=== PATIENT | female | born 1955 | race Caucasian/White ===

== ENCOUNTER → 2016-04-09 | Outpatient (CLI) | payer OTHER ==
[~2016-04-09] MED LIST: ACET-1256 PO; ANT25 PO; FURO-85 PO; LEVO100C2 PO
--- NOTE | 2016-04-09 17:23 | DIAGNOSTIC IMAGING REPORT ---
LEFT SHOULDER 3 VIEWS HISTORY: Left shoulder pain. COMPARISON: None. FINDINGS: There is no fracture or dislocation. Soft tissues are unremarkable. The left clavicle appears intact. There is mild AC joint arthrosis. IMPRESSION: No fracture or dislocation within the left shoulder. Electronically signed by: Ken Fields M.D. 04/09/2016 5:22 PM Dictated Date/Time: 04/09/2016 5:20 PM
== END | disposition home or self-care (01) ==
LOC: C.RAD 17:06
PROVIDERS: ATTEND Internal Medicine
DX: M25.512 Pain in left shoulder (principal)

== ENCOUNTER → 2016-07-13 | Outpatient (CLI) | payer OTHER ==
[~2016-07-13] MED LIST changes: +ERYT200S PO
--- NOTE | 2016-07-13 14:01 | DIAGNOSTIC IMAGING REPORT ---
CERVICAL SPINE 2 OR 3 VIEWS CLINICAL HISTORY: Neck and arm pain. COMPARISON STUDY: Cervical spine CT September 24, 2015. FINDINGS: C7 is slightly obscured on this exam. There is reversal of the normal cervical lordosis. This is unchanged. Mild to moderate disc space narrowing and osteophytosis is noted at C5-C6 and C6-C7. There is no acute fracture or suspicious lesion. IMPRESSION: 1. No cervical spine fracture or subluxation. 2. Reversal of normal cervical lordosis which is unchanged. 3. Mild to moderate multilevel degenerative disc disease, most pronounced at C5-C6 and C6-C7. Electronically signed by: Allan Fgiueroa M.D. 07/13/2016 2:00 PM Dictated Date/Time: 07/13/2016 1:58 PM
== END | disposition home or self-care (01) ==
LOC: C.RAD 13:26
PROVIDERS: ATTEND Physician Assistant Medical
DX: M54.2 Cervicalgia (principal); M79.603 Pain in arm, unspecified; M50.322 Other cervical disc degeneration at C5-C6 level; M50.323 Other cervical disc degeneration at C6-C7 level

== ENCOUNTER → 2016-08-06 | Outpatient (CLI) | payer OTHER ==
[2016-08-06 17:54] LABS: ALT/SGPT 27 U/L (12-78); AST/SGOT 18 U/L (15-37); BLOOD UREA NITROGEN 12 mg/dl (7-18); BUN/CREATININE RATIO 12.1 (10-20); CALCIUM 9.2 mg/dl (8.5-10.1); CARBON DIOXIDE 33 mmol/L (21-32); CHLORIDE 108 mmol/L (98-107); CHOLESTEROL 253 mg/dl (0-200); CHOLESTEROL/HDL RATIO 5.1; GLUCOSE 98 mg/dl (70-99); HDL CHOLESTEROL 50 mg/dl; POTASSIUM 4.6 mmol/L (3.5-5.1); SODIUM 145 mmol/L (136-145)
[2016-08-06 18:04] LABS: ALB/GLOB RATIO 1.1 (0.9-2); ALKALINE PHOSPHATASE 78 U/L (45-117); LDL CHOLESTEROL CALCULATED 158 mg/dl; TRIGLYCERIDES 225 mg/dl (0-150); VERY LOW DENSITY LIPOPROT CALC 45 mg/dl
[2016-08-07 05:48] LABS: ESTIMATED AVERAGE GLUCOSE 126 mg/dl; HA1C FLAG Normal (Normal)
== END | disposition home or self-care (01) ==
LOC: C.LABBFT 12:04
PROVIDERS: ATTEND Internal Medicine
DX: E78.00 Pure hypercholesterolemia, unspecified (principal); E89.0 Postprocedural hypothyroidism; R73.01 Impaired fasting glucose

== ENCOUNTER → 2016-12-15 | Outpatient (CLI) | payer OTHER ==
[~2016-12-15] MED LIST changes: -ERYT200S PO
[2016-12-15 17:55] LABS: MANUAL MICROSCOPIC REQUIRED? NO; REVIEW REQ? NO; URINE APPEARANCE CLEAR (CLEAR); URINE BILIRUBIN NEG (NEG); URINE COLOR YELLOW; URINE NITRITE NEG (NEG); UROBILINOGEN NEG (NEG)
== END | disposition home or self-care (01) ==
LOC: C.LABBFT 11:47
PROVIDERS: ATTEND Physician Assistant Medical
DX: R35.0 Frequency of micturition (principal)

== ENCOUNTER → 2016-12-16 | Outpatient (CLI) | payer OTHER ==
[2016-12-16 12:40] LABS: BLOOD UREA NITROGEN 15 mg/dl (7-18); CREATININE 0.99 mg/dl (0.60-1.20); GLUCOSE 107 mg/dl (70-99)
[2016-12-16 12:41] LABS: BUN/CREATININE RATIO 15.3 (10-20); CALCIUM 9.2 mg/dl (8.5-10.1); CARBON DIOXIDE 27 mmol/L (21-32); CHLORIDE 106 mmol/L (98-107); POTASSIUM 4.4 mmol/L (3.5-5.1); SODIUM 140 mmol/L (136-145)
== END | disposition home or self-care (01) ==
LOC: C.LAB 10:36
PROVIDERS: ATTEND Physician Assistant Medical
DX: H81.10 Benign paroxysmal vertigo, unspecified ear (principal)

== ENCOUNTER 2017-01-27 15:31 | Emergency (ER) | payer OTHER ==
[~2017-01-27] VITALS: Ht 165.1 cm; Wt 115.3 kg
[2017-01-27 15:34] VITALS: TEMP 36.8; Ht 165.1 cm; Wt 115.3 kg
[2017-01-27] MEDS ORDERED: SODIUM CHLORIDE 0.9% 1000ML 1,000 ML IV ONE (16:00)
[2017-01-27] MEDS ORDERED: ERYT200S PO (16:42)
[2017-01-27 16:48] LABS: URINE APPEARANCE CLEAR (CLEAR); URINE BILIRUBIN NEG (NEG); URINE COLOR YELLOW; URINE NITRITE NEG (NEG); URINE PH 5.5 (4.5-7.5); URINE SPECIFIC GRAVITY 1.013 (1.000-1.030); UROBILINOGEN NEG (NEG); ZZUR CULT IF INDIC CLEAN CATCH NO
[2017-01-27 16:51] LABS: BASO % 0.4 %; BASO ABS # 0.03 K/uL (0-0.2); COMPLETE YES; EOS % 1.2 %; HEMATOCRIT 44.9 % (37-47); IG% 0.4 %; LYMPH % 30.2 %; LYMPH ABS # 2.25 K/uL (1.2-3.4); MEAN CELL VOLUME 93.7 fL (80-100); MEAN CORPUSCULAR HEMOGLOBIN 32.2 pg (25-34); MEAN CORPUSCULAR HGB CONC 34.3 g/dl (32-36); MEAN PLATELET VOLUME 10.3 fL (7.4-10.4); NEUT % 61.8 %; PLATELET COUNT 217 K/uL (130-400); RED BLOOD COUNT 4.79 M/uL (4.2-5.4); WHITE BLOOD COUNT 7.45 K/uL (4.8-10.8)
[2017-01-27 17:01] LABS: MANUAL MICROSCOPIC REQUIRED? NO; REVIEW REQ? NO
[2017-01-27 17:16] LABS: BUN/CREATININE RATIO 13.9 (10-20); CALCIUM 9.3 mg/dl (8.5-10.1); CREATININE 0.94 mg/dl (0.60-1.20); MAGNESIUM 2.2 mg/dl (1.8-2.4); POTASSIUM 3.9 mmol/L (3.5-5.1)
[2017-01-27 17:27] LABS: THYROID STIMULATING HORMONE 0.848 uIu/ml (0.300-4.500)
[2017-01-27 17:36] VITALS: BP 170/115; PULSE 74; O2SAT 99
[2017-01-27 17:55] VITALS: O2SAT 99
--- NOTE | 2017-01-27 22:27 | EMERGENCY ROOM VISIT NOTE ---
History First contact with patient: 15:42 Chief Complaint: HYPERTENSION Stated Complaint: BP HIGH, REFERRED History of Present Illness The patient is a 61 year old female who presents to the Emergency Room with complaints of elevated blood pressure reading today. The patient states that she usually checks her blood pressure at home because of elevated readings in the doctor's office. She essentially describes a white coat syndrome, and indicates that her blood pressure at home is usually in the 120s over 80s. The patient states that around 3 AM she got up from sleep to use the bathroom, and felt her heartbeat in her left ear. She checked her blood pressure and it was evidently in the 180s over 90s. This elevated blood pressure reading continued throughout the day. Evidently the patient has had a stressful day as her brother was diagnosed with cancer recently, and she took him to a doctor's appointment today. She states that when she got home she rechecked her blood pressure and it was in the 190s over 110s. The patient elected to then come to the ER for further evaluation. She does not have headache, lightheadedness, dizziness, vision changes, hearing changes, neck pain, chest pain, chest tightness, or shortness of breath. No difficulty using the bathroom. She has not taken anything [id number] for her symptoms. Review of Systems More than 10 systems were reviewed and otherwise negative with the exception of history of present illness. Past Medical/Surgical History Medical Problems: (1) Benign hypertension (2) Bronchitis (3) Dehydration (4) Diarrhea (5) Diarrhea (6) Folliculitis (7) Hypertension Nos (8) Kidney disease (9) Panic attack (10) Pneumonia (11) Pure Hypercholesterolem (12) Skin Problems (13) Urinary Problems (14) Weakness Surgical Problems: (1) Hysterectomy (2) Kidney and Ureter Removed (3) Thyroid Removed Family History Atrial Fibrillation Diabetes mellitus Hypertension Hypothyroidism Social History Smoking Status: Former Smoker Alcohol Use: none Drug Use: none Housing Status: lives with family Occupation Status: employed Current/Historical Medications Scheduled Erythromycin Ethylsuccinate (Eryped 200), 200 MG PO QID Levothyroxine Sodium (Tirosint), 100 MCG PO DAILY Scheduled PRN Acetaminophen (Tylenol), 1,000 MG PO for Headache Furosemide (Lasix), 20 MG PO DAILY PRN for SWELLING Physical Exam Vital Signs Date Time Temp Pulse Resp B/P (MAP) Pulse Ox O2 Delivery O2 Flow Rate FiO2 01/27/17 17:55 99 Room Air 01/27/17 17:36 74 18 170/115 99 Room Air 01/27/17 16:24 71 01/27/17 15:34 36.8 93 22 160/110 99 Room Air Physical Exam VITALS: Vitals are noted on the nurse's note and reviewed by myself. Vital signs with elevated blood pressure GENERAL: Well-developed, well-nourished, white female, who is in no acute distress and resting comfortably. Patient is cooperative with the examination. NECK: Supple without nuchal rigidity. No lymphadenopathy. No thyromegaly. Cervical spine is nontender. HEART: Regular rate and rhythm without murmurs gallops or rubs. LUNGS: Clear to auscultation bilaterally without wheezes, rales or rhonchi. No retractions or accessory muscle use. ABDOMEN: Positive normal bowel sounds x 4. Soft, nontender, without masses or organomegaly. No guarding or rebound tenderness. MUSCULOSKELETAL: No muscle atrophy, erythema, or edema noted. Full range of motion without joint tenderness in all extremities. NEURO: Patient was alert and oriented to person place and time. CN II through XII grossly intact. Medical Decision & Procedures Laboratory Results 01/27/17 16:40 Red Blood Count 4.79, Mean Corpuscular Volume 93.7, Mean Corpuscular Hemoglobin 32.2, Mean Corpuscular Hemoglobin Concent 34.3, Mean Platelet Volume 10.3, Neutrophils (%) (Auto) 61.8, Lymphocytes (%) (Auto) 30.2, Monocytes (%) (Auto) 6.0, Eosinophils (%) (Auto) 1.2, Basophils (%) (Auto) 0.4, Neutrophils # (Auto) 4.60, Lymphocytes # (Auto) 2.25, Monocytes # (Auto) 0.45, Eosinophils # (Auto) 0.09, Basophils # (Auto) 0.03 01/27/17 16:40 Test 01/27/17 16:20 01/27/17 16:40 Urine Color YELLOW Urine Appearance CLEAR (CLEAR) Urine pH 5.5 (4.5-7.5) Urine Specific [place] 1.013 (1.000-1.030) Urine Protein NEG (NEG) Urine Glucose (UA) NEG (NEG) Urine Ketones NEG (NEG) Urine Occult Blood NEG (NEG) Urine Nitrite NEG (NEG) Urine Bilirubin NEG (NEG) Urine Urobilinogen NEG (NEG) Urine Leukocyte Esterase NEG (NEG) White Blood Count 7.45 K/uL (4.8-10.8) Red Blood Count 4.79 M/uL (4.2-5.4) Hemoglobin 15.4 g/dL (12.0-16.0) Hematocrit 44.9 % (37-47) Mean Corpuscular Volume 93.7 fL (80-100) Mean Corpuscular Hemoglobin 32.2 pg (25-34) Mean Corpuscular Hemoglobin Concent 34.3 g/dl (32-36) Platelet Count 217 K/uL (130-400) Mean Platelet Volume 10.3 fL (7.4-10.4) Neutrophils (%) (Auto) 61.8 % Lymphocytes (%) (Auto) 30.2 % Monocytes (%) (Auto) 6.0 % Eosinophils (%) (Auto) 1.2 % Basophils (%) (Auto) 0.4 % Neutrophils # (Auto) 4.60 K/uL (1.4-6.5) Lymphocytes # (Auto) 2.25 K/uL (1.2-3.4) Monocytes # (Auto) 0.45 K/uL (0.11-0.59) Eosinophils # (Auto) 0.09 K/uL (0-0.5) Basophils # (Auto) 0.03 K/uL (0-0.2) RDW Standard Deviation 43.2 fL (36.4-46.3) RDW Coefficient of Variation 12.6 % (11.5-14.5) Immature Granulocyte % (Auto) 0.4 % Immature Granulocyte # (Auto) 0.03 K/uL (0.00-0.02) Anion Gap 7.0 mmol/L (3-11) Est Creatinine Clear Calc Drug Dose 78.7 ml/min Estimated GFR () 75.4 Estimated GFR (Non- 65.0 BUN/Creatinine Ratio 13.9 (10-20) Calcium Level 9.3 mg/dl (8.5-10.1) Magnesium Level 2.2 mg/dl (1.8-2.4) Total Bilirubin 0.7 mg/dl (0.2-1) Aspartate Amino Transf (AST/SGOT) 21 U/L (15-37) Alanine Aminotransferase (ALT/SGPT) 31 U/L (12-78) Alkaline Phosphatase 86 U/L (45-117) Troponin I < 0.015 ng/ml (0-0.045) Total Protein 8.0 gm/dl (6.4-8.2) Albumin 4.1 gm/dl (3.4-5.0) Globulin 3.9 gm/dl (2.5-4.0) Albumin/Globulin Ratio 1.0 (0.9-2) Thyroid Stimulating Hormone (TSH) 0.848 uIu/ml (0.300-4.500) Medications Administered Medications (Trade) Dose Ordered Sig/Nery Route Start Time Stop Time Status Last Admin Dose Admin Sodium Chloride 1,000 ml @ 999 mls/hr Q1H1M ONCE IV 01/27/17 16:00 01/27/17 17:00 DC 01/27/17 17:05 999 MLS/HR ECG Change: Normal sinus rhythm @77bpm Low voltage QRS Borderline ECG When compared with ECG of 21-JAN-2016 03:38, No significant change was found ED Course Physical exam and history were performed. Nursing notes, EMR, and Medication List were personally reviewed. Patient appears to have reports of elevated blood pressure. Her pressure is elevated today, but she is not describing any and organ injury. IV access was established and labs were obtained. The patient was hydrated with normal saline. EKG was performed and is as above without distinct ischemic findings. The patient's blood work is as above and was reviewed. She does not have a significantly elevated white blood cell count, gross anemia, bandemia, or significant electrolyte imbalance. Troponin 1 is negative. Her remaining labs are essentially nondiagnostic. Review of the patient's EMR over the past 5 years shows chronic hypertension. I remain skeptical that the patient has a true whitecoat syndrome, as her blood pressure is always elevated here in the emergency department, and today's readings are on the lower end of normal for her. I discussed options of care with the patient, and she indicated that she would rather follow with her primary care physician then start medication here. I do suspect that she will need some sort of treatment, although she is somewhat resistant to this. Overall the patient appears well for discharge home. She was given instructions as below and was otherwise invited back to the ER with any new, worsening, or concerning symptoms. The chart was completed utilizing [employer] Speech Voice Recognition Software. Grammatical errors, random word insertions, pronoun errors, and incomplete sentences are an occasional consequence of this system due to software limitations, ambient noise, and hardware issues. Any formal questions or concerns about the content, text, or information contained within the body of this dictation should be directly addressed to the provider for clarification. . Medical Decision Differential diagnosis includes, but is not limited to: Myocardial infarction, dysrhythmia, pericarditis, pneumothorax, aortic aneurysm/dissection, DVT/PE, anxiety, GERD, PUD, electrolyte imbalance, thyroid disorder, pneumonia, bronchitis, pancreatitis, and others Blood Pressure Screening Patient's blood pressure: Elevated blood pressure Blood pressure disposition: Referred to PCP Impression Primary Impression: Hypertension Departure Information Dispostion Home / Self-Care Condition GOOD Forms HOME CARE DOCUMENTATION FORM, IMPORTANT VISIT INFORMATION Patient Instructions My [facility] Additional Instructions You were seen and evaluated today on an emergency basis only. This is not a substitute for, or an effort to provide, complete comprehensive medical care. It is not possible to recognize and treat all injuries or illnesses in a single emergency department visit. For this reason it is recommended that you followup with your primary care physician next week for ongoing care and evaluation. You are welcome to return to the emergency department anytime with new, worsening, or concerning symptoms.
== END 2017-01-27 18:15 | disposition home or self-care (01) ==
LOC: C.EDB 15:32 → C.EDA 18:15
DX: I10 Essential (primary) hypertension (principal); N28.9 Disorder of kidney and ureter, unspecified; E78.00 Pure hypercholesterolemia, unspecified; Z87.01 Personal history of pneumonia (recurrent); Z90.710 Acquired absence of both cervix and uterus; Z90.5 Acquired absence of kidney; E89.0 Postprocedural hypothyroidism; Z83.3 Family history of diabetes mellitus; Z82.49 Family history of ischemic heart disease and other diseases of the circulatory system; Z83.49 Family history of other endocrine, nutritional and metabolic diseases; Z87.891 Personal history of nicotine dependence; Z79.899 Other long term (current) drug therapy

== ENCOUNTER → 2017-02-09 | Outpatient (CLI) | payer OTHER ==
[~2017-02-09] MED LIST changes: -ANT25 PO; +ERYT200S PO
[2017-02-09 12:32] LABS: ESTIMATED AVERAGE GLUCOSE 123 mg/dl; HA1C FLAG Normal (Normal)
[2017-02-09 12:35] LABS: ALT/SGPT 30 U/L (12-78); AST/SGOT 16 U/L (15-37); BLOOD UREA NITROGEN 18 mg/dl (7-18); BUN/CREATININE RATIO 17.5 (10-20); CALCIUM 8.9 mg/dl (8.5-10.1); CARBON DIOXIDE 28 mmol/L (21-32); CHLORIDE 106 mmol/L (98-107); CREATININE 1.05 mg/dl (0.60-1.20); GLUCOSE 173 mg/dl (70-99); POTASSIUM 3.7 mmol/L (3.5-5.1); SODIUM 138 mmol/L (136-145)
[2017-02-09 12:39] LABS: HEMATOCRIT 41.8 % (37-47); MEAN CELL VOLUME 95.7 fL (80-100); MEAN CORPUSCULAR HGB CONC 33.5 g/dl (32-36); MEAN PLATELET VOLUME 10.7 fL (7.4-10.4); PLATELET COUNT 224 K/uL (130-400); RED BLOOD COUNT 4.37 M/uL (4.2-5.4); WHITE BLOOD COUNT 7.49 K/uL (4.8-10.8)
[2017-02-09 12:41] LABS: ALB/GLOB RATIO 0.9 (0.9-2); ALKALINE PHOSPHATASE 75 U/L (45-117); CHOLESTEROL 242 mg/dl (0-200); CHOLESTEROL/HDL RATIO 4.7; HDL CHOLESTEROL 51 mg/dl; LDL CHOLESTEROL CALCULATED 143 mg/dl; TRIGLYCERIDES 242 mg/dl (0-150); VERY LOW DENSITY LIPOPROT CALC 48 mg/dl
== END | disposition home or self-care (01) ==
LOC: C.LABBFT 10:29
PROVIDERS: ATTEND Internal Medicine
DX: R73.01 Impaired fasting glucose (principal); E89.0 Postprocedural hypothyroidism; I10 Essential (primary) hypertension

== ENCOUNTER 2019-07-20 19:25 | Observation (INO) ==
[2019-07-20] MEDS ORDERED: SODIUM CHLORIDE 0.9% 1000ML 1,000 ML IV ONE (19:58)
[2019-07-20] MEDS ORDERED: ACETAMINOPHEN 500 MG TAB PO STA (19:58)
--- NOTE | 2019-07-20 20:04 | Emergency Department Note ---
Impression & Plan Abdominal pain, RUQ ED Provider Note Provider: Geo Izaguirre MD DATE OF SERVICE: 07/20/2019 CHIEF COMPLAINT: Right upper quadrant epigastric pain HISTORY OF PRESENT ILLNESS: Patient is a 64-year-old female with a past medical history of thyroid dysfunction, BPV, fibromyalgia, hyperlipidemia, hypertension presenting today with the onset approximately 2 hours ago of prickly right upper quadrant pain with some radiation of the back and little bit of epigastric discomfort. Denies nausea or vomiting. States a couple loose stools and some gaseous feeling and bloating. Did eat some ice cream and chips and salsa before this developed. Denies other sick contacts. No fever. No shortness of breath. States little bit of epigastric chest discomfort but denies true heartburn. States little bit of focal tenderness the right upper quadrant pain is fairly severe. Constant nature and again worse with palpation of the right upper quadrant. No trauma. No history of similar. No history of prior cholecystectomy. No lower abdominal pain. Denies ina diarrhea. REVIEW OF SYSTEMS: A total of 10 review of systems was obtained and negative except as stated above in the HPI. PAST MEDICAL HISTORY: As noted above MEDICATIONS: Reviewed and includes Synthroid SOCIAL HISTORY: Patient is a former smoker, lives at home alone PHYSICAL EXAM: GENERAL: alert and oriented in no acute distress on stretcher Head: normocephalic and atraumatic EYES: No injection, discharge or icterus. NECK: Trachea midline. Supple. ENT: Mucous membranes pink and moist. LUNGS: Airway patent. No retractions. Breath sounds clear HEART: Regular rate and rhythm. No chest wall tenderness ABDOMEN: Soft some focal right upper quadrant pain. BACK: No bilateral flank tenderness. SKIN: Acyanotic, warm, dry, without rashes EXTREMITIES: Without swelling, tenderness or deformity NEUROLOGICAL: No focal deficits. No aphasia. No facial droop or slurred speech. Ambulatory. EK bpm normal sinus rhythm. No PVCs. No acute ST segment elevation or depression is noted. Normal QTC and axis. No significant change compared to April 30 of this year. CONTINUOUS CARDIAC MONITORING: was ordered and showed a heart rate of 70 bpm in normal sinus rhythm Patient's hypertension was referred to the hospitalist PDMP was checked without noted issue. HOSPITAL COURSE: 1942 Patient was first seen and H&P performed. 2139 Patient reassessed and updated. Patient was still experiencing right upper quadrant pain and tenderness although lessened 2340 patient reassessed and updated on CT findings. Right upper quadrant pain has returned and is more severe compared to last assessment. Discussed with her options. Hospitalist to be contacted. Patient's laboratory studies and imaging reviewed. Differential includes Appendicitis, TOA, PID, infections, diverticulitis, UTI, obstruction, mesenteric ischemia, aortic pathology, inflammatory bowel disease, renal colic, PUD, pancreatitis, biliary pathology, hernia, volvulus, constipation, as well as other pathologies. IMPRESSION/MEDICAL DECISION MAKING: Patient with some right upper quadrant tenderness. Concern for possible gallbladder pathology. LFTs and lipase were sent off exclude hepatitis or pancreatitis. Troponin but EKG completed but low suspicion for acute ACS. Seem consistent with nephrolithiasis. No lower abdominal tenderness. Doubt acute appendicitis or gynecological pathology. Patient declined initial narcotic pain medication. Patient was offered Tylenol which she accepted but later advised she does not take pills. Patient with 8 or 9 out of 10 pain on reassessment return from ultrasound. Likely no significant leukocytosis and again no fever reported. Patient still with some focal tenderness right upper quadrant. Ultr asound showed cholelithiasis and mild gallbladder distention. Gallstone noted in the neck. No evidence of thickening or pericholecystic fluid. No definite Vega sign reported for ultrasound but cannot exclude acute cholecystitis. No biliary ductal dilation likely. Given the pain she still significantly countering at this time discussed with her general surgeon on-call. Patient given some IV Tylenol here. Did have several small bowel movements. Patient's right upper quadrant pain improved significantly with Tylenol. Little bit of flank pain/back pain continues. CT scan was completed in discussion with her to exclude other acute pathology. Noncontrast given her allergy complex. Consider admission for HIDA scan given ultrasound findings. Did discuss with her options at this point. On reassessment after the CT scan the patient's states her pain returned and still has tenderness in the right upper quadrant. Again not septic and rates 4 out of 10 pain. Pain is returned after the Tylenol. Discussed with her given a very small dose of some fentanyl for more pain control. Discussed options of observation or further surgical evaluation in the morning versus outpatient follow-up for cholelithiasis. Patient's hypertension likely secondary to pain and she states she has poorly controlled hypertension at baseline. Will discuss with hospitalist. DIAGNOSIS: Right upper quadrant pain, cholelithiasis DISPOSITION: Being evaluated by the hospitalist Past Med/Surg History Social History (Updated 06/16/19 @ 16:34 by Reena Solorzano LPN) Preferred Language: Burmese marital status: Feels Safe at Home: Yes Smoking Status: Former smoker Hx Alcohol Use: No Hx Substance Use: No Allergies Allergies Allergy/AdvReac Type Severity Reaction Status Date / Time ibuprofen Allergy Severe ELEVATED BP Verified 07/20/19 21:28 procaine Allergy Severe DIFFICULTY Verified 07/20/19 21:28 BREATHING Bactrim Allergy Intermediate HIVES; SOB Unverified 10/02/17 03:14 nitrofurantoin Allergy Intermediate HIVES Verified 07/20/19 21:28 sulfamethoxazole Allergy Intermediate HIVES; SOB Verified 07/20/19 21:28 trimethoprim Allergy Intermediate HIVES; SOB Verified 07/20/19 21:28 bupropion Allergy Unknown SEVERE Verified 07/20/19 21:28 HEADACHE, WEAKNESS cefaclor Allergy Unknown HIVES Verified 07/20/19 21:28 cephalexin Allergy Unknown HIVES Verified 07/20/19 21:28 chlorpheniramine Allergy Unknown SOB,PANIC Verified 07/20/19 21:28 ATTACK chocolate flavor Allergy Unknown HIVES Verified 07/20/19 21:30 Cipro Allergy Unknown HIVES Unverified 10/02/17 03:14 ciprofloxacin Allergy Unknown HIVES Verified 07/20/19 21:30 codeine Allergy Unknown SOB,PANIC Verified 07/20/19 21:30 ATTACK diphenhydramine Allergy Unknown HIVES Verified 07/20/19 21:30 epinephrine Allergy Unknown UNCONTROLLED Verified 07/20/19 21:30 SHAKING, ELEVATED BP fluoxetine Allergy Unknown SEVERE Verified 07/20/19 21:30 HEADACHE Iodinated Contrast Media Allergy Unknown SHORTNESS Verified 07/20/19 21:30 OF BREATH latex Allergy Unknown ITCHY RASH Verified 07/20/19 21:30 lidocaine Allergy Unknown UNCONTROLLED Verified 07/20/19 21:30 SHAKING, ELEVATED BP minocycline Allergy Unknown HIVES Verified 07/20/19 21:30 morphine Allergy Unknown SEVERE Verified 07/20/19 21:30 HEADACHE paroxetine Allergy Unknown SEVERE Verified 07/20/19 21:30 HEADACHE Penicillins Allergy Unknown HIVES Verified 07/20/19 21:30 phenylpropanolamine Allergy Unknown SOB,PANIC Verified 07/20/19 21:30 ATTACK strawberry Allergy Unknown HIVES Verified 07/20/19 21:30 azithromycin Allergy Unknown Verified 07/20/19 21:30 clindamycin AdvReac Intermediate DIARRHEA Verified 07/20/19 21:30 tetracycline AdvReac Intermediate YEAST Verified 07/20/19 21:30 INFECTION caffeine AdvReac Unknown INCREASE BP Verified 07/20/19 21:30 CONTRAST DYE Allergy Intermediate SOB, HOT Uncoded 07/20/19 21:30 Home Meds Previous Rx's Medication Instructions Recorded levothyroxine 100 mcg capsule 100 mcg PO DAILY #30 cap 03/03/19 furosemide 20 mg tablet 10 mg PO DAILY PRN #30 tab 04/10/19 Results & Data (ED) Vital Signs Vital Signs - 24 hr 07/20/19 19:27 07/20/19 20:08 07/20/19 22:11 Temperature 36.8 C Temperature Source Oral Pulse Rate 97 H Pulse Rate [Apical] 70 Pulse Rate from SpO2 Sensor Pulse Rhythm Regular Pulse Strength Normal Respiratory Rate 20 20 Respiratory Effort / Characteristics Non-Labored Respiratory Depth Normal Respiratory Pattern Blood Pressure 185/115 H Blood Pressure [Left Arm] 229/90 H Blood Pressure Mean 138 Blood Pressure Mean [Left Arm] 136 Blood Pressure Position Sitting Pulse Oximetry 95 98 98 Oxygen Delivery Method Room Air Room Air Room Air Sepsis Recent Fever Within 48 Hours No Sepsis Action Taken by Nursing No Action Required 07/21/19 00:05 07/21/19 00:30 07/21/19 01:00 Temperature Temperature Source Pulse Rate 74 80 Pulse Rate [Apical] 75 Pulse Rate from SpO2 Sensor 73 80 Pulse Rhythm Pulse Strength Respiratory Rate 20 14 18 Respiratory Effort / Characteristics Non-Labored Spontaneous Respiratory Depth Normal Respiratory Pattern Regular Blood Pressure Blood Pressure [Left Arm] 211/91 H Blood Pressure Mean Blood Pressure Mean [Left Arm] 131 Blood Pressure Position Pulse Oximetry 97 96 98 Oxygen Delivery Method Room Air Room Air Room Air Sepsis Recent Fever Within 48 Hours Sepsis Action Taken by Nursing 07/21/19 01:30 Temperature Temperature Source Pulse Rate 83 Pulse Rate [Apical] Pulse Rate from SpO2 Sensor 80 Pulse Rhythm Pulse Strength Respiratory Rate 16 Respiratory Effort / Characteristics Respiratory Depth Respiratory Pattern Blood Pressure Blood Pressure [Left Arm] Blood Pressure Mean Blood Pressure Mean [Left Arm] Blood Pressure Position Pulse Oximetry 95 Oxygen Delivery Method Room Air Sepsis Recent Fever Within 48 Hours Sepsis Action Taken by Nursing Laboratory Data Result diagrams: 07/20/19 19:43 07/20/19 19:43 Lab Results 07/20/19 07/20/19 07/20/19 Range/Units 19:43 19:43 19:43 WBC 8.72 (4.8-10.8) K/uL RBC 4.93 (4.2-5.4) M/uL Hgb 15.9 (12.0-16.0) g/dL Hct 46.9 (37-47) % MCV 95.1 (80-100) fL MCH 32.3 (25-34) pg MCHC 33.9 (32-36) g/dL RDW Std Deviation 44.7 (36.4-46.3) fL RDW Coeff of Govind 12.9 (11.5-14.5) % Plt Count 228 (130-400) K/uL MPV 10.7 H (7.4-10.4) fL Immature Gran % (Auto) 0.5 % Neut % (Auto) 50.4 % Lymph % (Auto) 42.2 % [place] % (Auto) 5.4 % Eos % (Auto) 0.9 % Baso % (Auto) 0.6 % Immature Gran # (Auto) 0.04 H (0.00-0.02) K/uL Neut # (Auto) 4.40 (1.4-6.5) K/uL Lymph # (Auto) 3.68 H (1.2-3.4) K/uL [place] # (Auto) 0.47 (0.11-0.59) K/uL Eos # (Auto) 0.08 (0-0.5) K/uL Baso # (Auto) 0.05 (0-0.2) K/uL Sodium 139 (136-145) mmol/L Potassium 3.9 (3.5-5.1) mmol/L Chloride 105 (98-107) mmol/L Carbon Dioxide 29 (21-32) mmol/L Anion Gap 5.0 (3-11) BUN 15 (7-18) mg/dl Creatinine 1.15 (0.6-1.2) mg/dl Est Cr Clr Drug Dosing 62.1 ml/min Est GFR ( Amer) 57.8 Est GFR (Non-Af Amer) 49.9 BUN/Creatinine Ratio 13.5 (10-20) Glucose 166 H (70-99) mg/dl Calcium 9.7 (8.5-10.1) mg/dl Total Bilirubin 0.4 (0.2-1) mg/dl AST 34 (15-37) U/L ALT 61 (12-78) U/L Alkaline Phosphatase 92 (45-117) U/L Troponin I < 0.015 (0-0.045) ng/ml Total Protein 8.4 H (6.4-8.2) gm/dl Albumin 4.0 (3.4-5.0) gm/dl Globulin 4.4 H (2.5-4.0) gm/dl Albumin/Globulin Ratio 0.9 (0.9-2) Lipase 143 (73-393) U/L Urine Color Yellow Urine Appearance Turbid A (Clear) Urine pH 7.5 (4.5-7.5) Ur Specific [place] 1.016 (1.000-1.030) Urine Protein Negative (Negative) Urine Glucose (UA) Negative (Negative) Urine Ketones Negative (Negative) Urine Blood Negative (Negative) Urine Nitrite Negative (Negative) Urine Bilirubin Negative (Negative) Urine Urobilinogen Negative (Negative) Ur Leukocyte Esterase Negative (Negative) Urine WBC (Auto) 0 (0-5) /hpf Urine RBC (Auto) 0-4 (0-4) /hpf U Hyaline Cast (Auto) 0 (0-5) /lpf U Epithel Cells (Auto) 5-10 H (0-5) /lpf Urine Bacteria (Auto) Negative (Negative) Administered Medications Discontinued Medications Acetaminophen (Tylenol) 1,000 mg PO NOW STA Stop: 07/20/19 19:59 Last Admin: 07/20/19 20:27 Dose: Not Given Documented by: [id number] Fentanyl Citrate (Fentanyl Citrate) 25 mcg IV NOW STA Stop: 07/20/19 23:45 Last Admin: 07/20/19 23:53 Dose: 25 mcg Documented by: [id number] Sodium Chloride (Nss 1000ml) 1,000 mls @ 999 mls/hr IV .Q1H1M ONE Stop: 07/20/19 20:58 Last Infusion: 07/20/19 21:09 Dose: 0 mls/hr Documented by: [id number] Admin: 07/20/19 20:07 Dose: 999 mls/hr Documented by: [id number] Acetaminophen (Ofirmev) 1,000 mg in 100 mls @ 400 mls/hr IV NOW STA Stop: 07/20/19 22:17 Last Infusion: 07/20/19 22:29 Dose: 0 mls/hr Documented by: [id number] Admin: 07/20/19 22:09 Dose: 400 mls/hr Documented by: [id number] Discharge Plan Visit Data Chief Complaint: Abdominal Pain Stated Complaint: POSSIBLE GULLBLADDER PROBLEMS ED Provider: Geo Izaguirre Discharge Problem: Abdominal pain, RUQ Forms Stand Alone Forms: [facility] Prescriptions Prescriptions: No Action Tirosint 100 mcg capsule 100 mcg PO DAILY Qty: 30 RF: 5 furosemide 20 mg tablet 10 mg PO DAILY PRN (Reason: edema) Qty: 30 RF: 5
[2019-07-20 20:09] LABS: Basophils # (auto) 0.05 K/uL (0-0.2); Basophils % (auto) 0.6 %; Eosinophils # (auto) 0.08 K/uL (0-0.5); Eosinophils % (auto) 0.9 %; Hematocrit (blood only) 46.9 % (37-47); Hemoglobin 15.9 g/dL (12.0-16.0); Immature Granulocytes # (auto) 0.04 K/uL (0.00-0.02); Immature Granulocytes % (auto) 0.5 %; Lymphocytes # (auto) 3.68 K/uL (1.2-3.4); Lymphocytes % (auto) 42.2 %; Mean Corpuscular Hemoglobin 32.3 pg (25-34); Mean Corpuscular Hgb Conc 33.9 g/dL (32-36); Mean Corpuscular Volume 95.1 fL (80-100); Mean Platelet Volume 10.7 fL (7.4-10.4); Monocytes # (auto) 0.47 K/uL (0.11-0.59); Monocytes % (auto) 5.4 %; Neutrophils % (auto) 50.4 %; Platelet Count 228 K/uL (130-400); RDW Coefficient of Variation 12.9 % (11.5-14.5); RDW Standard Deviation 44.7 fL (36.4-46.3); Red Blood Count 4.93 M/uL (4.2-5.4); White Blood Count 8.72 K/uL (4.8-10.8)
[2019-07-20 20:13] LABS: Appearance Urine Turbid (Clear); Bacteria Urine Automated Negative (Negative); Bilirubin Urine Negative (Negative); Blood Urine Negative (Negative); Cast Urine Automated 0 /lpf (0-5); Color Urine Yellow; Glucose Urine UA Negative (Negative); Ketones Urine Negative (Negative); Leukocyte Esterase Urine Negative (Negative); Nitrite Urine Negative (Negative); Protein Urine Negative (Negative); RBC Urine Automated 0-4 /hpf (0-4); Specific Gravity Urine 1.016 (1.000-1.030); Urobilinogen Urine Negative (Negative); WBC Urine Automated 0 /hpf (0-5); pH Urine 7.5 (4.5-7.5)
[2019-07-20 20:38] LABS: Alanine Aminotransferase 61 U/L (12-78); Albumin Globulin Ratio 0.9 (0.9-2); Alkaline Phosphatase 92 U/L (45-117); BUN Creatinine Ratio 13.5 (10-20); Bilirubin,Total 0.4 mg/dl (0.2-1); Blood Urea Nitrogen 15 mg/dl (7-18); Calcium 9.7 mg/dl (8.5-10.1); Carbon Dioxide 29 mmol/L (21-32); Chloride 105 mmol/L (98-107); Creatinine Clr Calc Pharmacy 62.1 ml/min; Est GFR (African American) 57.8; Est GFR (Non-African American) 49.9; Globulin 4.4 gm/dl (2.5-4.0); Glucose 166 mg/dl (70-99); Lipase 143 U/L (73-393); Total Protein 8.4 gm/dl (6.4-8.2); Troponin I < 0.015 ng/ml (0-0.045)
[2019-07-20 21:10] LABS: Aspartate Aminotransferase 34 U/L (15-37); Potassium 3.9 mmol/L (3.5-5.1); Sodium 139 mmol/L (136-145)
--- NOTE | 2019-07-20 21:16 | Ultrasound Report ---
US gallbladder CLINICAL HISTORY: Right upper quadrant abdominal pain. COMPARISON STUDY: CT of the abdomen and pelvis December 04, 2011. FINDINGS: Hepatic echogenicity is increased consistent with fatty infiltration with sparing within th e gallbladder fossa. A few hepatic cysts are noted. There is no biliary ductal dilatation. The common bile duct measures 5 mm in caliber. The pancreatic body is normal. The head and tail are obscured. T here are gallstones and sludge within the gallbladder. There is a gallstone within the gallbladder ne ck. Gallbladder is mildly distended. There is no gallbladder wall thickening. No pericholecystic flui d is present. There is no definite sonographic Vega sign. No right hydronephrosis is present. There is slight prominence of the right renal collecting system. A 1.2 cm right renal cyst is present. IMPRESSION: 1. Cholelithiasis and mild gallbladder distention. No gallbladder wall thickening or pericholecystic fluid. No definite sonographic Vega sign. Although not highly suggestive, acute cholecystitis canno t be excluded and a hepatobiliary scan could be obtained. 2. Fatty infiltration of the liver. 3. No biliary ductal dilatation. ACT 112: Negative or not required by law. Electronically signed by: Allan Figueroa M.D. 07/20/2019 9:14 PM
[2019-07-20] MEDS ORDERED: ACETAMINOPHEN 1,000 MG/100 ML VIAL IV STA (22:03)
[2019-07-20] MEDS ORDERED: fentaNYL citrate 100 MCG/2 ML VIAL IV STA (23:44)
--- NOTE | 2019-07-21 01:20 | History & Physical Report ---
Date of Service July 21, 2019 Assessment & Plan (1) Abdominal pain, RUQ: 64-year-old female with a past medical history of hypothyroidism status post thyroidectomy, hypertension, anxiety and depression, BPPV, hypercholesterolemia admitted for right upper quadrant pain and cholelithiasis. 1. Cholelithiasis Gallbladder ultrasound and CT abdomen without contrast showing no gallbladder wall thickening, no pericystic fluid or stranding, no biliary ductal dilatation but with presence of a few gallbladder stones. CT did show some evidence of gallbladder sludge. Admitted to [facility] with plans for HIDA scan in the morning White blood cell count within normal range and AST/ALT, alk phos all within normal range. Unimpressive for acute cholecystitis General surgery consulted, appreciate recommendations regarding surgical options IV Zofran for nausea IV Tylenol and Toradol for pain control. Patient stated that the fentanyl given in ED did not "touch her pain." N.p.o. at midnight IV normal saline at maintenance rate 2 hypothyroidism Continued home levothyroxine 100 mcg daily 3. Hypertension Continued home furosemide 10 mg daily DVT prophylaxis: Heparin 5000 units subcu twice daily FEN/GI: N.p.o. with maintenance IV normal saline CODE STATUS: Full code Disposal: [facility] (2) Hypothyroidism, postablative: (3) Depression: (4) Hypertension: History of Present Illness 64-year-old female with a past medical history of hypercholesterolemia, hypothyroidism status post ablation and removal, fibromyalgia, depression, hypertension presents to the emergency department with right upper quadrant abdominal pain that started earlier today. She states that she ate mostly junk food today and started feeling some aching right upper quadrant abdominal pain that only got worse as time went on. She denies any radiation of the pain, worsening or relieving factors. She did not take anything at home to relieve the pain. She did feel some nausea but had no episodes of emesis. She states she has had some loose stools which she believes to be secondary to the melon that she ate however she denies any blood in the stool, black tarry stools, ina diarrhea. ED course: Gallbladder ultrasound showing Cholelithiasis and mild gallbladder distention without gallbladder wall thickening or pericholecystic fluid. No biliary ductal dilatation. Fatty infiltration of the liver. CT abdomen without contrast performed secondary to her allergy to iodine. CT findings echoed the ultrasound findings, finding few stones and some biliary sludging no confirmation of acute cholecystitis. She received IV Tylenol and fentanyl for pain control as well as a bolus of normal saline. Primary Care Provider: Dae Tierney MD Allergies Allergy/AdvReac Type Severity Reaction Status Date / Time ibuprofen Allergy Severe ELEVATED BP Verified 07/20/19 21:28 procaine Allergy Severe DIFFICULTY Verified 07/20/19 21:28 BREATHING Bactrim Allergy Intermediate HIVES; SOB Unverified 10/02/17 03:14 nitrofurantoin Allergy Intermediate HIVES Verified 07/20/19 21:28 sulfamethoxazole Allergy Intermediate HIVES; SOB Verified 07/20/19 21:28 trimethoprim Allergy Intermediate HIVES; SOB Verified 07/20/19 21:28 bupropion Allergy Unknown SEVERE Verified 07/20/19 21:28 HEADACHE, WEAKNESS cefaclor Allergy Unknown HIVES Verified 07/20/19 21:28 cephalexin Allergy Unknown HIVES Verified 07/20/19 21:28 chlorpheniramine Allergy Unknown SOB,PANIC Verified 07/20/19 21:28 ATTACK chocolate flavor Allergy Unknown HIVES Verified 07/20/19 21:30 Cipro Allergy Unknown HIVES Unverified 10/02/17 03:14 ciprofloxacin Allergy Unknown HIVES Verified 07/20/19 21:30 codeine Allergy Unknown SOB,PANIC Verified 07/20/19 21:30 ATTACK diphenhydramine Allergy Unknown HIVES Verified 07/20/19 21:30 epinephrine Allergy Unknown UNCONTROLLED Verified 07/20/19 21:30 SHAKING, ELEVATED BP fluoxetine Allergy Unknown SEVERE Verified 07/20/19 21:30 HEADACHE Iodinated Contrast Media Allergy Unknown SHORTNESS Verified 07/20/19 21:30 OF BREATH latex Allergy Unknown ITCHY RASH Verified 07/20/19 21:30 lidocaine Allergy Unknown UNCONTROLLED Verified 07/20/19 21:30 SHAKING, ELEVATED BP minocycline Allergy Unknown HIVES Verified 07/20/19 21:30 morphine Allergy Unknown SEVERE Verified 07/20/19 21:30 HEADACHE paroxetine Allergy Unknown SEVERE Verified 07/20/19 21:30 HEADACHE Penicillins Allergy Unknown HIVES Verified 07/20/19 21:30 phenylpropanolamine Allergy Unknown SOB,PANIC Verified 07/20/19 21:30 ATTACK strawberry Allergy Unknown HIVES Verified 07/20/19 21:30 azithromycin Allergy Unknown Verified 07/20/19 21:30 clindamycin AdvReac Intermediate DIARRHEA Verified 07/20/19 21:30 tetracycline AdvReac Intermediate YEAST Verified 07/20/19 21:30 INFECTION caffeine AdvReac Unknown INCREASE BP Verified 07/20/19 21:30 CONTRAST DYE Allergy Intermediate SOB, HOT Uncoded 07/20/19 21:30 Home Medications Home Medications Medication Instructions Recorded Confirmed Type levothyroxine 100 mcg capsule 100 mcg PO DAILY #30 cap 03/03/19 07/20/19 Rx furosemide 20 mg tablet 10 mg PO DAILY PRN #30 tab 04/10/19 07/20/19 Rx Past Med/Surg History Medical History Acid reflux (Acute) Anxiety disorder (Acute) BPPV (benign paroxysmal positional vertigo) (Acute) Depression (Acute) Fibromyalgia (Acute) Hypercholesterolemia (Acute) Hypothyroidism, postablative (Acute) Impaired fasting glucose (Acute) Ulnar nerve palsy (Acute) Vertigo (Acute) Surgical History History of hysterectomy History of nephrectomy History of thyroidectomy Family History Unknown Breast cancer Lung cancer Heart disease Mother Hypertension Hypothyroidism Atrial fibrillation Varicose veins of lower extremity Sister Psychosis Hypertension Father Coronary heart disease Type 1 diabetes mellitus Brother Cancer Coronary heart disease Bladder cancer Emphysema, unspecified Social History (Updated 06/16/19 @ 16:34 by Reena Solorzano LPN) Preferred Language: Mauritanian Communication Ability: Effective [employer] Professor Required: No Beliefs That Will Affect Care: None marital status: Current Living Situation: Alone Feels Safe at Home: Yes Safety Concerns: Feels Safe At This Time Smoking Status: Former smoker Tobacco Type: cigarettes ; Hx Alcohol Use: Yes Alcohol type: wine Hx Substance Use: No Review of Systems Constitutional: + chills; no fever, no body aches and no anorexia Respiratory: no cough, no dyspnea, no hemoptysis and no pain on inspiration Cardiovascular: no chest pain, no dyspnea on exertion, no palpitations and no edema Gastrointestinal: + abdominal pain, + nausea, + change in stools and + diarrhea/loose stools; no vomiting, no coffee ground emesis, no constipation and no blood in stools Physical Exam Constitutional: well developed and + morbidly obese; no acute distress Neck: Thick neck, trachea midline Respiratory: normal respiratory effort, lungs clear to auscultation no respiratory distress and no cough Auscultation: no crackles, no rales, no rhonchi and no wheezes Cardiovascular: RRR, no murmur, no edema Extremities: no calf tenderness Gastrointestinal (Abdomen): Abdomen normal to visual inspection, soft, large per body habitus, positive Vega's sign, tenderness to palpation of the epigastric region, normal bowel sounds, no guarding, no rigidity Results & Data Results & Data ([facility]) Vital Signs (Past 12 Hours) Vital Signs Temp Pulse Pulse Resp BP BP Pulse Ox 07/21/19 00:05 75 20 211/91 H 97 07/20/19 22:11 70 20 229/90 H 98 07/20/19 20:08 98 07/20/19 19:27 36.8 C 97 H 20 185/115 H 95 Laboratory Results WBC 8.72 K/uL (4.8-10.8) 07/20/19 19:43 RBC 4.93 M/uL (4.2-5.4) 07/20/19 19:43 Hgb 15.9 g/dL (12.0-16.0) 07/20/19 19:43 Hct 46.9 % (37-47) 07/20/19 19:43 MCV 95.1 fL (80-100) 07/20/19 19:43 MCH 32.3 pg (25-34) 07/20/19 19:43 MCHC 33.9 g/dL (32-36) 07/20/19 19:43 RDW Std Deviation 44.7 fL (36.4-46.3) 07/20/19 19:43 RDW Coeff of Govind 12.9 % (11.5-14.5) 07/20/19 19:43 Plt Count 228 K/uL (130-400) 07/20/19 19:43 MPV 10.7 fL (7.4-10.4) H 07/20/19 19:43 Immature Gran % (Auto) 0.5 % 07/20/19 19:43 Neut % (Auto) 50.4 % 07/20/19 19:43 Lymph % (Auto) 42.2 % 07/20/19 19:43 [place] % (Auto) 5.4 % 07/20/19 19:43 Eos % (Auto) 0.9 % 07/20/19 19:43 Baso % (Auto) 0.6 % 07/20/19 19:43 Immature Gran # (Auto) 0.04 K/uL (0.00-0.02) H 07/20/19 19:43 Neut # (Auto) 4.40 K/uL (1.4-6.5) 07/20/19 19:43 Lymph # (Auto) 3.68 K/uL (1.2-3.4) H 07/20/19 19:43 [place] # (Auto) 0.47 K/uL (0.11-0.59) 07/20/19 19:43 Eos # (Auto) 0.08 K/uL (0-0.5) 07/20/19 19:43 Baso # (Auto) 0.05 K/uL (0-0.2) 07/20/19 19:43 Sodium 139 mmol/L (136-145) 07/20/19 19:43 Potassium 3.9 mmol/L (3.5-5.1) 07/20/19 19:43 Chloride 105 mmol/L (98-107) 07/20/19 19:43 Carbon Dioxide 29 mmol/L (21-32) 07/20/19 19:43 Anion Gap 5.0 (3-11) 07/20/19 19:43 BUN 15 mg/dl (7-18) 07/20/19 19:43 Creatinine 1.15 mg/dl (0.6-1.2) 07/20/19 19:43 Est Cr Clr Drug Dosing 62.1 ml/min 07/20/19 19:43 Est GFR ( Amer) 57.8 07/20/19 19:43 Est GFR (Non-Af Amer) 49.9 07/20/19 19:43 BUN/Creatinine Ratio 13.5 (10-20) 07/20/19 19:43 Glucose 166 mg/dl (70-99) H 07/20/19 19:43 Calcium 9.7 mg/dl (8.5-10.1) 07/20/19 19:43 Total Bilirubin 0.4 mg/dl (0.2-1) 07/20/19 19:43 AST 34 U/L (15-37) 07/20/19 19:43 ALT 61 U/L (12-78) 07/20/19 19:43 Alkaline Phosphatase 92 U/L (45-117) 07/20/19 19:43 Troponin I < 0.015 ng/ml (0-0.045) 07/20/19 19:43 Total Protein 8.4 gm/dl (6.4-8.2) H 07/20/19 19:43 Albumin 4.0 gm/dl (3.4-5.0) 07/20/19 19:43 Globulin 4.4 gm/dl (2.5-4.0) H 07/20/19 19:43 Albumin/Globulin Ratio 0.9 (0.9-2) 07/20/19 19:43 Lipase 143 U/L (73-393) 07/20/19 19:43 Urine Color Yellow 07/20/19 19:43 Urine Appearance Turbid (Clear) A 07/20/19 19:43 Urine pH 7.5 (4.5-7.5) 07/20/19 19:43 Ur Specific [place] 1.016 (1.000-1.030) 07/20/19 19:43 Urine Protein Negative (Negative) 07/20/19 19:43 Urine Glucose (UA) Negative (Negative) 07/20/19 19:43 Urine Ketones Negative (Negative) 07/20/19 19:43 Urine Blood Negative (Negative) 07/20/19 19:43 Urine Nitrite Negative (Negative) 07/20/19 19:43 Urine Bilirubin Negative (Negative) 07/20/19 19:43 Urine Urobilinogen Negative (Negative) 07/20/19 19:43 Ur Leukocyte Esterase Negative (Negative) 07/20/19 19:43 Urine WBC (Auto) 0 /hpf (0-5) 07/20/19 19:43 Urine RBC (Auto) 0-4 /hpf (0-4) 07/20/19 19:43 U Hyaline Cast (Auto) 0 /lpf (0-5) 07/20/19 19:43 U Epithel Cells (Auto) 5-10 /lpf (0-5) H 07/20/19 19:43 Urine Bacteria (Auto) Negative (Negative) 07/20/19 19:43 Supervising Physician Co-Signing Physician Notes Attending addendum: I have physically seen this patient, have supervised the medical residents activities, and agree with the H&P unless as otherwise noted. Assessment and Plan: Cholelithiasis- results of ultrasound and CT not convincing for acute cholecystitis. Order NM HIDA scan N.p.o. Zofran 4 mg IV every 6 hours as needed Famotidine 20 mg IV every 12 hours IV fluids Consult general surgery. Hold furosemide. Continue levothyroxine 100 mcg daily Remaining orders and notations as noted. Resident Activity Tracking Resident Involvement: Resident Care Provided Care Provided: Adult [facility]
[2019-07-21] MEDS ORDERED: FUROSEMIDE 20 MG TAB PO PRN (02:33)
[2019-07-21] MEDS ORDERED: ACETAMINOPHEN 325 MG TAB PO PRN (02:33)
[2019-07-21] MEDS ORDERED: KETOROLAC TROMETHAMINE 15 MG/ML VIAL IV PRN (02:33)
[2019-07-21] MEDS ORDERED: ACETAMINOPHEN 1,000 MG/100 ML VIAL IV STA (02:49)
[2019-07-21] MEDS: SODIUM CHLORIDE 0.9% 1000ML 1,000 ML IV SCH ×2 (03:00→12:01)
[2019-07-21] MEDS: TIROSINT PO SCH (06:18)
[2019-07-21] MEDS ORDERED: LEVOTHYROXINE SODIUM 100 MCG TABLET PO SCH (06:30)
[2019-07-21] MEDS ORDERED: LEVOTHYROXINE SODIUM 100 MCG PO SCH (06:30)
--- NOTE | 2019-07-21 07:10 | CT Scan Report ---
CT abd pelvis wo con CLINICAL HISTORY: 64 years-old Female presenting with RUQ/flank pain, history of left nephrectomy. TECHNIQUE: Multidetector CT of the abdomen and pelvis was performed without the use of intravenous co ntrast. IV contrast: None. One or more dose lowering techniques were used consistent with the princip les of ALARA (as low as reasonably achievable), including automatic exposure control, mA or kV adjust ment to individual patient size, and/or use of iterative reconstruction. COMPARISON: 12/04/2011. CT DOSE (mGy.cm): The estimated cumulative dose is 971.61 mGycm. FINDINGS: Qa Tester topogram: Surgical clips project over the left renal fossa. Lung bases: Normal heart size. Coronary artery calcification. No pericardial or pleural effusion. Min imal dependent changes likely atelectasis. Liver: Normal morphology. Density consistent with hepatic steatosis. Well-defined hypodense lesions i n the left hepatic lobe likely hepatic cysts. Fatty sparing in the gallbladder fossa. Biliary: No gross biliary ductal dilatation allowing for noncontrast technique. Distended gallbladder with gallstones. Borderline gallbladder wall thickening. No pericholecystic fluid or inflammatory ch gail. Slight tension is suggested on the overlying abdominal wall. Pancreas: Normal noncontrast appearance. Spleen: Normal noncontrast appearance. Adrenal glands: Normal noncontrast appearance. Kidneys and ureters: Status post left nephrectomy. Normal noncontrast appearance of the right kidney apart from a suspected cyst. No nephrolithiasis or hydronephrosis. Ureters nondistended. Bladder: Normal noncontrast appearance. Pelvic organs: Uterus surgically absent. No adnexal masses. Bowel: Diverticulosis of the sigmoid and descending colon without wall thickening or pericolonic infl ammatory change. Diverticulosis also noted throughout the transverse colon. The appendix is normal. N o bowel obstruction. Peritoneal cavity: No free fluid or intraperitoneal gas. Lymph nodes: No gross lymphadenopathy allowing for noncontrast technique. Vasculature: Atherosclerosis of the normal caliber abdominal aorta. Abdominal wall: Small bilateral inguinal hernias and small fat-containing umbilical hernia. Musculoskeletal: Degenerative changes of the spine. IMPRESSION: 1. Distended gallbladder with gallstones and subtle evidence of tension at the fundus. Findings favo r early acute calculus cholecystitis. Surgical consultation recommended. HIDA scan could be confirmat ory. 2. Pancolonic diverticulosis. No diverticulitis. 3. Hepatic steatosis. The report will be called/faxed according to standard departmental protocol. ACT 112: Negative or not required by law. Electronically signed by: Colt Webster M.D. 07/21/2019 7:08 AM
[2019-07-21] MEDS ORDERED: HEPARIN SOD 5,000 UNIT/0.5 ML VIAL SQ SCH (09:00)
--- NOTE | 2019-07-21 09:55 | Surgery Consultation ---
Date of Consultation July 21, 2019 Assessment & Plan (1) Abdominal pain, RUQ: pt is a 64 year -old female who was admitted to hospital for acute abdominal pain with CT scan and U/S study finding- gallstone, pt has no abdominal pain now, normal WBC, LFTs. IMP: cholelithiasis, I agree with HIDA scan study today, depend result, do laparoscopic cholecystectomy on weekend or next week, personal lines insurance agent surgeon will cover over the weekend, pt agree with the plan, I answered all questions, (2) Cholelithiasis: History of Present Illness Attending Physician: Ivan Villagran MD CC: abdominal pain HPI:64-year-old female with a past medical history of hypercholesterolemia, hypothyroidism status post ablation and removal, fibromyalgia, depression, hypertension presents to the emergency department with right upper quadrant ab dominal pain that started earlier today. She states that she ate mostly junk food today and started feeling some aching right upper quadrant abdominal pain that only got worse as time went on. She denies any radiation of the pain, worsening or relieving factors. She did not take anything at home to relieve the pain. She did feel some nausea but had no episodes of emesis. She states she has had some loose stools which she believes to be secondary to the melon that she ate however she denies any blood in the stool, black tarry stools, ina diarrhea. ED course: Gallbladder ultrasound showing Cholelithiasis and mild gallbladder distention without gallbladder wall thickening or pericholecystic fluid. No biliary ductal dilatation. Fatty infiltration of the liver. CT abdomen without contrast performed secondary to her allergy to iodine. CT findings echoed the ultrasound findings, finding few stones and some biliary sludging no confirmation of acute cholecystitis. She received IV Tylenol and fentanyl for pain control as well as a bolus of normal saline. I ( Mely Lazo MD ) got a call for consult gallstone, I reviewed pt's H/P, labs, CT scan and U/S study, pt has no abdominal pain, no nausea, no vomiting, Primary Care Provider: Dae Tierney MD Allergies Allergy/AdvReac Type Severity Reaction Status Date / Time ibuprofen Allergy Severe ELEVATED BP Verified 07/20/19 21:28 procaine Allergy Severe DIFFICULTY Verified 07/20/19 21:28 BREATHING Bactrim Allergy Intermediate HIVES; SOB Unverified 10/02/17 03:14 nitrofurantoin Allergy Intermediate HIVES Verified 07/20/19 21:28 sulfamethoxazole Allergy Intermediate HIVES; SOB Verified 07/20/19 21:28 trimethoprim Allergy Intermediate HIVES; SOB Verified 07/20/19 21:28 bupropion Allergy Unknown SEVERE Verified 07/20/19 21:28 HEADACHE, WEAKNESS cefaclor Allergy Unknown HIVES Verified 07/20/19 21:28 cephalexin Allergy Unknown HIVES Verified 07/20/19 21:28 chlorpheniramine Allergy Unknown SOB,PANIC Verified 07/20/19 21:28 ATTACK chocolate flavor Allergy Unknown HIVES Verified 07/20/19 21:30 Cipro Allergy Unknown HIVES Unverified 10/02/17 03:14 ciprofloxacin Allergy Unknown HIVES Verified 07/20/19 21:30 codeine Allergy Unknown SOB,PANIC Verified 07/20/19 21:30 ATTACK diphenhydramine Allergy Unknown HIVES Verified 07/20/19 21:30 epinephrine Allergy Unknown UNCONTROLLED Verified 07/20/19 21:30 SHAKING, ELEVATED BP fluoxetine Allergy Unknown SEVERE Verified 07/20/19 21:30 HEADACHE Iodinated Contrast Media Allergy Unknown SHORTNESS Verified 07/20/19 21:30 OF BREATH latex Allergy Unknown ITCHY RASH Verified 07/20/19 21:30 lidocaine Allergy Unknown UNCONTROLLED Verified 07/20/19 21:30 SHAKING, ELEVATED BP minocycline Allergy Unknown HIVES Verified 07/20/19 21:30 morphine Allergy Unknown SEVERE Verified 07/20/19 21:30 HEADACHE paroxetine Allergy Unknown SEVERE Verified 07/20/19 21:30 HEADACHE Penicillins Allergy Unknown HIVES Verified 07/20/19 21:30 phenylpropanolamine Allergy Unknown SOB,PANIC Verified 07/20/19 21:30 ATTACK strawberry Allergy Unknown HIVES Verified 07/20/19 21:30 azithromycin Allergy Unknown Verified 07/20/19 21:30 clindamycin AdvReac Intermediate DIARRHEA Verified 07/20/19 21:30 tetracycline AdvReac Intermediate YEAST Verified 07/20/19 21:30 INFECTION caffeine AdvReac Unknown INCREASE BP Verified 07/20/19 21:30 CONTRAST DYE Allergy Intermediate SOB, HOT Uncoded 07/20/19 21:30 Home Medications Home Medications Medication Instructions Recorded Confirmed Type levothyroxine 100 mcg capsule 100 mcg PO DAILY #30 cap 03/03/19 07/20/19 Rx furosemide 20 mg tablet 10 mg PO DAILY PRN #30 tab 02/03/20 05/14/20 Rx Past Med/Surg History Medical History Acid reflux (Acute) Anxiety disorder (Acute) BPPV (benign paroxysmal positional vertigo) (Acute) Depression (Acute) Fibromyalgia (Acute) Hypercholesterolemia (Acute) Hypothyroidism, postablative (Acute) Impaired fasting glucose (Acute) Ulnar nerve palsy (Acute) Vertigo (Acute) Surgical History History of hysterectomy History of nephrectomy History of thyroidectomy Family History Unknown Breast cancer Lung cancer Heart disease Mother Hypertension Hypothyroidism Atrial fibrillation Varicose veins of lower extremity Sister Psychosis Hypertension Father Coronary heart disease Type 1 diabetes mellitus Brother Cancer Coronary heart disease Bladder cancer Emphysema, unspecified Social History (Updated 06/16/19 @ 16:34 by Reena Solorzano LPN) Preferred Language: Nigerien Communication Ability: Effective Carpenters Supervisor Required: No Beliefs That Will Affect Care: None marital status: Current Living Situation: Alone Feels Safe at Home: Yes Safety Concerns: Feels Safe At This Time Smoking Status: Former smoker Tobacco Type: cigarettes ; Hx Alcohol Use: Yes Alcohol type: wine Hx Substance Use: No Review of Systems Constitutional: + chills; no fever, no body aches and no anorexia Respiratory: no cough, no dyspnea, no hemoptysis and no pain on inspiration Cardiovascular: no chest pain, no dyspnea on exertion, no palpitations and no edema Gastrointestinal: + abdominal pain, + nausea, + change in stools and + diarrhea/loose stools; no vomiting, no coffee ground emesis, no constipation and no blood in stools Allergies Allergy/AdvReac Type Severity Reaction Status Date / Time ibuprofen Allergy Severe ELEVATED BP Verified 07/20/19 21:28 procaine Allergy Severe DIFFICULTY Verified 07/20/19 21:28 BREATHING Bactrim Allergy Intermediate HIVES; SOB Unverified 10/02/17 03:14 nitrofurantoin Allergy Intermediate HIVES Verified 07/20/19 21:28 sulfamethoxazole Allergy Intermediate HIVES; SOB Verified 07/20/19 21:28 trimethoprim Allergy Intermediate HIVES; SOB Verified 07/20/19 21:28 bupropion Allergy Unknown SEVERE Verified 07/20/19 21:28 HEADACHE, WEAKNESS cefaclor Allergy Unknown HIVES Verified 07/20/19 21:28 cephalexin Allergy Unknown HIVES Verified 07/20/19 21:28 chlorpheniramine Allergy Unknown SOB,PANIC Verified 07/20/19 21:28 ATTACK chocolate flavor Allergy Unknown HIVES Verified 07/20/19 21:30 Cipro Allergy Unknown HIVES Unverified 10/02/17 03:14 ciprofloxacin Allergy Unknown HIVES Verified 07/20/19 21:30 codeine Allergy Unknown SOB,PANIC Verified 07/20/19 21:30 ATTACK diphenhydramine Allergy Unknown HIVES Verified 07/20/19 21:30 epinephrine Allergy Unknown UNCONTROLLED Verified 07/20/19 21:30 SHAKING, ELEVATED BP fluoxetine Allergy Unknown SEVERE Verified 07/20/19 21:30 HEADACHE Iodinated Contrast Media Allergy Unknown SHORTNESS Verified 07/20/19 21:30 OF BREATH latex Allergy Unknown ITCHY RASH Verified 07/20/19 21:30 lidocaine Allergy Unknown UNCONTROLLED Verified 07/20/19 21:30 SHAKING, ELEVATED BP minocycline Allergy Unknown HIVES Verified 07/20/19 21:30 morphine Allergy Unknown SEVERE Verified 07/20/19 21:30 HEADACHE paroxetine Allergy Unknown SEVERE Verified 07/20/19 21:30 HEADACHE Penicillins Allergy Unknown HIVES Verified 07/20/19 21:30 phenylpropanolamine Allergy Unknown SOB,PANIC Verified 07/20/19 21:30 ATTACK strawberry Allergy Unknown HIVES Verified 07/20/19 21:30 azithromycin Allergy Unknown Verified 07/20/19 21:30 clindamycin AdvReac Intermediate DIARRHEA Verified 07/20/19 21:30 tetracycline AdvReac Intermediate YEAST Verified 07/20/19 21:30 INFECTION caffeine AdvReac Unknown INCREASE BP Verified 07/20/19 21:30 CONTRAST DYE Allergy Intermediate SOB, HOT Uncoded 07/20/19 21:30 Home Medications Home Medications Medication Instructions Recorded Confirmed Type levothyroxine 100 mcg capsule 100 mcg PO DAILY #30 cap 03/03/19 07/20/19 Rx furosemide 20 mg tablet 10 mg PO DAILY PRN #30 tab 04/10/19 07/20/19 Rx Patient History Medical History Acid reflux (Acute) Anxiety disorder (Acute) BPPV (benign paroxysmal positional vertigo) (Acute) Depression (Acute) Fibromyalgia (Acute) Hypercholesterolemia (Acute) Hypothyroidism, postablative (Acute) Impaired fasting glucose (Acute) Ulnar nerve palsy (Acute) Vertigo (Acute) Surgical History History of hysterectomy History of nephrectomy History of thyroidectomy Family History Unknown Breast cancer Lung cancer Heart disease Mother Hypertension Hypothyroidism Atrial fibrillation Varicose veins of lower extremity Sister Psychosis Hypertension Father Coronary heart disease Type 1 diabetes mellitus Brother Cancer Coronary heart disease Bladder cancer Emphysema, unspecified Social History (Updated 06/16/19 @ 16:34 by Reena Solorzano LPN) Preferred Language: Nigerien Communication Ability: Effective Carpenters Supervisor Required: No Beliefs That Will Affect Care: None marital status: Current Living Situation: Alone Feels Safe at Home: Yes Safety Concerns: Feels Safe At This Time Smoking Status: Former smoker Tobacco Type: cigarettes ; Hx Alcohol Use: Yes Alcohol type: wine Hx Substance Use: No Physical Exam Constitutional: WD/WN, vitals as above well developed and well nourished Eyes: PERRL, conjunctivae normal, anicteric sclerae ENMT: external ear and nose normal, oropharynx normal Neck: trachea midline, no thyromegaly Respiratory: normal respiratory effort, lungs clear to auscultation normal respiratory effort Cardiovascular: RRR, no murmur, no edema Rate/Rhythm: regular rate and regular rhythm Heart Sounds: normal S1 and normal S2 Gastrointestinal (Abdomen): normal bowel sounds, soft, nontender, no hepatosplenomegaly Inspection/Auscultation: abdomen normal to inspection soft, NT, ND, BS +, Musculoskeletal: no cyanosis or clubbing, extremities motor strength 5/5 Skin: no rashes, warm and dry Neurologic: patellar DTR's 2+ bilat, sensation intact Psychiatric: Orientation: alert and oriented x 3 Results & Data Vital Signs (Past 12 Hours) Vital Signs Temp Pulse Pulse Pulse Pulse Resp BP 07/21/19 07:35 36.7 C 84 18 185/76 H 07/21/19 04:59 36.4 C L 67 16 184/75 H 07/21/19 02:33 36.9 C 83 18 212/104 H 07/21/19 02:11 70 20 185/85 H 07/21/19 01:30 83 16 07/21/19 01:00 80 18 07/21/19 00:30 74 14 07/21/19 00:05 75 20 211/91 H 07/20/19 22:11 70 20 229/90 H BP Pulse Ox 07/21/19 07:35 93 07/21/19 04:59 97 07/21/19 02:33 236/103 H 100 07/21/19 02:11 99 07/21/19 01:30 95 07/21/19 01:00 98 07/21/19 00:30 96 07/21/19 00:05 97 07/20/19 22:11 98 Laboratory Results Abnormal lab results 07/20/19 07/20/19 07/20/19 Range/Units 19:43 19:43 19:43 MPV 10.7 H (7.4-10.4) fL Immature Gran # (Auto) 0.04 H (0.00-0.02) K/uL Lymph # (Auto) 3.68 H (1.2-3.4) K/uL Glucose 166 H (70-99) mg/dl Total Protein 8.4 H (6.4-8.2) gm/dl Globulin 4.4 H (2.5-4.0) gm/dl Urine Appearance Turbid A (Clear) U Epithel Cells (Auto) 5-10 H (0-5) /lpf Diagnostic Findings CT abd pelvis wo con CLINICAL HISTORY: 64 years-old Female presenting with RUQ/flank pain, history of left nephrectomy. TECHNIQUE: Multidetector CT of the abdomen and pelvis was performed without the use of intravenous contrast. IV contrast: None. One or more dose lowering te chniques were used consistent with the principles of ALARA (as low as reasonably achievable), including automatic exposure control, mA or kV adjustment to individual patient size, and/or use of iterative reconstruction. COMPARISON: 12/04/2011. CT DOSE (mGy.cm): The estimated cumulative dose is 971.61 mGycm. FINDINGS: Buildings And Grounds Coordinator topogram: Surgical clips project over the left renal fossa. Lung bases: Normal heart size. Coronary artery calcification. No pericardial or pleural effusion. Minimal dependent changes likely atelectasis. Liver: Normal morphology. Density consistent with hepatic steatosis. Well- defined hypodense lesions in the left hepatic lobe likely hepatic cysts. Fatty sparing in the gallbladder fossa. Biliary: No gross biliary ductal dilatation allowing for noncontrast technique. Distended gallbladder with gallstones. Borderline gallbladder wall thickening. No pericholecystic fluid or inflammatory change. Slight tension is suggested on the overlying abdominal wall. Pancreas: Normal noncontrast appearance. Spleen: Normal noncontrast appearance. Adrenal glands: Normal noncontrast appearance. Kidneys and ureters: Status post left nephrectomy. Normal noncontrast appearance of the right kidney apart from a suspected cyst. No nephrolithiasis or hydronephrosis. Ureters nondistended. Bladder: Normal noncontrast appearance. Pelvic organs: Uterus surgically absent. No adnexal masses. Bowel: Diverticulosis of the sigmoid and descending colon without wall thickening or pericolonic inflammatory change. Diverticulosis also noted throughout the transverse colon. The appendix is normal. No bowel obstruction. Peritoneal cavity: No free fluid or intraperitoneal gas. Lymph nodes: No gross lymphadenopathy allowing for noncontrast technique. Vasculature: Atherosclerosis of the normal caliber abdominal aorta. Abdominal wall: Small bilateral inguinal hernias and small fat-containing umbilical hernia. Musculoskeletal: Degenerative changes of the spine. IMPRESSION: 1. Distended gallbladder with gallstones and subtle evidence of tension at the fundus. Findings favor early acute calculus cholecystitis. Surgical consultation recommended. HIDA scan could be confirmatory. 2. Pancolonic diverticulosis. No diverticulitis. 3. Hepatic steatosis. The report will be called/faxed according to standard departmental protocol. US gallbladder CLINICAL HISTORY: Right upper quadrant abdominal pain. COMPARISON STUDY: CT of the abdomen and pelvis December 04, 2011. FINDINGS: Hepatic echogenicity is increased consistent with fatty infiltration with sparing within the gallbladder fossa. A few hepatic cysts are noted. There is no biliary ductal dilatation. The common bile duct measures 5 mm in caliber. The pancreatic body is normal. The head and tail are obscured. There are gallstones and sludge within the gallbladder. There is a gallstone within the gallbladder neck. Gallbladder is mildly distended. There is no gallbladder wall thickening. No pericholecystic fluid is present. There is no definite sonographic Vega sign. No right hydronephrosis is present. There is slight prominence of the right renal collecting system. A 1.2 cm right renal cyst is present. IMPRESSION: 1. Cholelithiasis and mild gallbladder distention. No gallbladder wall thickening or pericholecystic fluid. No definite sonographic Vega sign. Although not highly suggestive, acute cholecystitis cannot be excluded and a hepatobiliary scan could be obtained. 2. Fatty infiltration of the liver. 3. No biliary ductal dilatation.
--- NOTE | 2019-07-21 11:58 | History & Physical Bridge Note ---
Date of Service July 21, 2019 History & Physical Bridge Note Doing well today. No pain. Evaluated by surgery who do want a HIDA scan before planning lap erin. Will work on that and if positive, can consider surgery over the or Wednesday.
[2019-07-21] MEDS ORDERED: SINCALIDE 2.3 MCG in 0.9 % SODIUM CHLORIDE 100 ML IV SCH (14:15)
--- NOTE | 2019-07-21 16:44 | Electrocardiogram Report ---
Test Reason : Blood Pressure : / mmHG Vent. Rate : 071 BPM Atrial Rate : 071 BPM P-R Int : 158 ms QRS Dur : 090 ms QT Int : 390 ms P-R-T Axes : 058 005 060 degrees QTc Int : 423 ms Normal sinus rhythm Normal ECG When compared with ECG of 30-APR-2019 09:20, No significant change was found Confirmed by Henry Doshi ([id number]) on 07/21/2019 4:44:38 PM Referred By: REFERRED SELF Confirmed By:Henry Doshi
--- NOTE | 2019-07-21 17:42 | Nuclear Medicine Report ---
NM hepatobiliary CLINICAL HISTORY: cholelithiasis, abdominal pain COMPARISON STUDY: CT scan dated 07/20/2019, ultrasound dated 07/20/2019 FINDINGS: The patient was injected with 5 mCi of technetium 99m Choletec. Sequential anterior images were acqui red. Hepatic excretion appeared unremarkable. There is normal passage of activity into small bowel. The gallbladder was not visualized at 1 hour. Morphine was not administered due to a morphine allergy . Additional imaging out to 4 hours was performed. The 4 hour image, the gallbladder was not visualized. IMPRESSION: Nonvisualization the gallbladder. This implies cystic duct obstruction. In the proper cl inical setting, this is indicative of acute cholecystitis. ACT 112: Negative or not required by law. Electronically signed by: Surinder Villanueva M.D. 07/21/2019 5:41 PM
--- NOTE | 2019-07-21 23:42 | Billing Data ---
Date of Service July 21, 2019 Coding Level of Care Code 42727 Initial Inpt Care Lvl 2
[2019-07-22] MEDS: TIROSINT PO SCH ×2 (05:33→09:15)
[2019-07-22] MEDS ORDERED: ACETAMINOPHEN SUSP 325 MG/10.15 ML UDC PO STA (09:08)
--- NOTE | 2019-07-22 09:13 | Surgery Progress Note ---
Date of Service July 22, 2019 Assessment & Plan (1) Cholelithiasis: HIDA without visualization of gallbladder, likely chronic cholecystitis given her resolution of symptoms, normal labs, and minimal CT/US findings she can resume diet and schedule lap erin as outpatient in the near future Supervising Physician Co-Signing Physician Notes 64-year-old female with likely low-grade chronic cholecystitis. She tolerated diet yesterday with no abdominal pain. This is her first episode of pain, however she endorses some bloating and indigestion after fatty meals in the past. CT and ultrasound with gallstones and concern for early cholecystitis. HIDA scan yesterday showed nonfilling of the gallbladder at 4 hours indicating possible cholecystitis. This morning she is afebrile with normal vital signs, abdomen is soft and nontender. We discussed her options to include cholecystectomy as an inpatient versus discharged home after tolerating regular diet with plans for close interval follow-up and discussion of cholecystectomy as an outpatient. At this point the patient elects to be discharged. She was instructed to avoid fatty meals, and to follow-up with myself, Dr. Lazo, or another surgeon next week. Subjective no pain or nausea, had dinner last night Physical Exam Gastrointestinal (Abdomen): Percussion/Palpation: abdomen soft; abdomen nontender Results & Data Vital Signs (Past 12 Hours) Vital Signs Temp Pulse Resp BP Pulse Ox 07/22/19 07:18 36.6 C 64 16 165/72 H 93 07/21/19 23:00 36.9 C 76 20 179/82 H 95 PG Care Time/CCT Total # of Minutes Spent Total Time Spent with Patient: Total time spent is greater than 50% in coordination of care (as documented) at patient's floor/unit and/or counseling patient: Coding Level of Care Code 64378 Subseq Hosp Care Lvl 1 Diagnoses Cholelithiasis K80.20
--- NOTE | 2019-07-22 13:15 | Discharge Summary ---
Date of Service July 22, 2019 Admission HPI Per Admitting Provider 64-year-old female with a past medical history of hypercholesterolemia, hypothyroidism status post ablation and removal, fibromyalgia, depression, hypertension presents to the emergency department with right upper quadrant abdominal pain that started earlier today. She states that she ate mostly junk food today and started feeling some aching right upper quadrant abdominal pain that only got worse as time went on. She denies any radiation of the pain, worsening or relieving factors. She did not take anything at home to relieve the pain. She did feel some nausea but had no episodes of emesis. She states she has had some loose stools which she believes to be secondary to the melon that she ate however she denies any blood in the stool, black tarry stools, ina diarrhea. ED course: Gallbladder ultrasound showing Cholelithiasis and mild gallbladder distention without gallbladder wall thickening or pericholecystic fluid. No biliary ductal dilatation. Fatty infiltration of the liver. CT abdomen without contrast performed secondary to her allergy to iodine. CT findings echoed the ultrasound findings, finding few stones and some biliary sludging no confirmation of acute cholecystitis. She received IV Tylenol and fentanyl for pain control as well as a bolus of normal saline. Admission Exam Per Admitting Provider Constitutional: well developed and + morbidly obese; no acute distress Neck: Thick neck, trachea midline Respiratory: normal respiratory effort, lungs clear to auscultation no respiratory distress and no cough Auscultation: no crackles, no rales, no rhonchi and no wheezes Cardiovascular: RRR, no murmur, no edema Extremities: no calf tenderness Gastrointestinal (Abdomen): Abdomen normal to visual inspection, soft, large per body habitus, positive Vega's sign, tenderness to palpation of the epigastric region, normal bowel sounds, no guarding, no rigidity Principal Diagnosis Cholelithiasis without cholecystitis Biliary colic pain Discharge Exam Constitutional well developed, well nourished and + morbidly obese; no acute distress Eyes + anicteric sclerae; normal pupil size Respiratory normal respiratory effort; no respiratory distress Cardiovascular Rate/Rhythm: regular rate and regular rhythm Gastrointestinal (Abdomen) Inspection/Auscultation: abdomen normal to inspection and normal bowel sounds Percussion/Palpation: abdomen soft; abdomen nontender, no guarding and abdomen not rigid Skin no rashes, warm and dry Neurologic moves all extremities and awake; not confused Psychiatric Orientation: alert and oriented x 3 Discharge Data Allergies Allergy/AdvReac Type Severity Reaction Status Date / Time ibuprofen Allergy Severe ELEVATED BP Verified 07/20/19 21:28 procaine Allergy Severe DIFFICULTY Verified 07/20/19 21:28 BREATHING Bactrim Allergy Intermediate HIVES; SOB Unverified 10/02/17 03:14 nitrofurantoin Allergy Intermediate HIVES Verified 07/20/19 21:28 sulfamethoxazole Allergy Intermediate HIVES; SOB Verified 07/20/19 21:28 trimethoprim Allergy Intermediate HIVES; SOB Verified 07/20/19 21:28 bupropion Allergy Unknown SEVERE Verified 07/20/19 21:28 HEADACHE, WEAKNESS cefaclor Allergy Unknown HIVES Verified 07/20/19 21:28 cephalexin Allergy Unknown HIVES Verified 07/20/19 21:28 chlorpheniramine Allergy Unknown SOB,PANIC Verified 07/20/19 21:28 ATTACK chocolate flavor Allergy Unknown HIVES Verified 07/20/19 21:30 Cipro Allergy Unknown HIVES Unverified 10/02/17 03:14 ciprofloxacin Allergy Unknown HIVES Verified 07/20/19 21:30 codeine Allergy Unknown SOB,PANIC Verified 07/20/19 21:30 ATTACK diphenhydramine Allergy Unknown HIVES Verified 07/20/19 21:30 epinephrine Allergy Unknown UNCONTROLLED Verified 07/20/19 21:30 SHAKING, ELEVATED BP fluoxetine Allergy Unknown SEVERE Verified 07/20/19 21:30 HEADACHE Iodinated Contrast Media Allergy Unknown SHORTNESS Verified 07/20/19 21:30 OF BREATH latex Allergy Unknown ITCHY RASH Verified 07/20/19 21:30 lidocaine Allergy Unknown UNCONTROLLED Verified 07/20/19 21:30 SHAKING, ELEVATED BP minocycline Allergy Unknown HIVES Verified 07/20/19 21:30 morphine Allergy Unknown SEVERE Verified 07/20/19 21:30 HEADACHE paroxetine Allergy Unknown SEVERE Verified 07/20/19 21:30 HEADACHE Penicillins Allergy Unknown HIVES Verified 07/20/19 21:30 phenylpropanolamine Allergy Unknown SOB,PANIC Verified 07/20/19 21:30 ATTACK strawberry Allergy Unknown HIVES Verified 07/20/19 21:30 azithromycin Allergy Unknown Verified 07/20/19 21:30 clindamycin AdvReac Intermediate DIARRHEA Verified 07/20/19 21:30 tetracycline AdvReac Intermediate YEAST Verified 07/20/19 21:30 INFECTION caffeine AdvReac Unknown INCREASE BP Verified 07/20/19 21:30 CONTRAST DYE Allergy Intermediate SOB, HOT Uncoded 07/20/19 21:30 Consultations 07/21/19 00:17 ED Decision to Admit Stat 07/21/19 02:33 Consult Case Management - Discharge Planning Routine Consult General Surgery Routine Ordered Studies 07/20/19 19:58 US gallbladder Stat 07/20/19 22:33 CT abd pelvis wo con Stat Hospital Course (1) Abdominal pain, RUQ: Nova Cote is 64 year old female who was to [facility] from July 20 to 2019 due to right upper quadrant abdominal pain. She was diagnosed with biliary colic pain from cholelithiasis. She did not have a fever and no elevated WBC or gall bladder wall thickening on ultrasound to suggest acute cholecystitis. HIDA scan showed nonvisualization of the gallbladder. However given clinical improvement without any pain on a low fat di et she was reviewed by surgery and recommended following up as an outpatient to discuss possible cholecystectomy. (2) Hypothyroidism, postablative: (3) Depression: (4) Hypertension: (5) Hepatic steatosis: (6) Diverticulosis: Total Time Total Time Spent Total Time Spent (In Minutes): 35 Total Time Includes: Examination of the Patient, Discharge Planning and Medication Reconciliation Discharge Plan Discharge Items Patient Disposition: Home - Self-Care Reason For Visit: ABDOMINAL PAIN, CHOLELITHIASIS Discharge Diagnosis: Cholelithiasis without cholecystitis (gallstones without infection) Biliary colic pain Condition on Discharge: Good Activity: Resume your previous activity Non-emergency contact: Primary Care Provider Call non-emergency contact if: you have any medication questions and your symptoms worsen Follow-up/Referrals: Dae Tierney III, MD [Primary Care Provider] - Brien Ramirez DO, ANURAG [Physician] - (Call to make an appt within the next week, Dr. Ramirez may be able to see you on Wednesday) Diet: Low Fat Addtl Attending Provider Instructions: See cholelithiasis instructions below. Follow up with surgery as above to discuss cholecystectomy - (gall bladder removal) Incidental findings of pancolonic diverticuloses - recommend a high fiber diet and avoiding constipation Hepatic steatosis (fatty liver disease) - very common finding on CT. Treatment - weight loss and exercise, recommend following up with your primary care phys ician as a small minority of fatty liver disease can progress to cirrhosis. Pending Studies at Discharge: No Stand-Alone Forms: My [facility] [employer], Smoking Cessation Medications and DC Order Prescriptions: Continued Tirosint 100 mcg capsule 100 mcg PO DAILY Qty: 30 RF: 5 furosemide 20 mg tablet 10 mg PO DAILY PRN (Reason: edema) Qty: 30 RF: 5 Discharge Orders: Discharge Order (Routine); Ordered 07/22/19 Ordered By: Milton Isaacs/Other Patient Handouts: Discharge Instructions for Gallstones, ED Low Fat Diet Admission Data Admit Date/Time: 07/21/19 01:54 Attending Provider: Milton Tong Admit Provider: Elidia Espinal Primary Care Provider: Dae Tierney III Other Providers: Brien Ramirez ; Ivan Villagran Coding Level of Care Code 90084 OBS Care - Discharge Diagnoses Abdominal pain, RUQ R10.11 Hypothyroidism, postablative E89.0 Depression F32.9 Hypertension I10 Hepatic steatosis K76.0 Diverticulosis K57.90
== END 2019-07-22 15:01 | disposition home or self-care (01) ==
LOC: ED 19:25 → 3E 19:25 → SUATTDRO 07-21 01:54 → 3E 07-21 02:14

== ENCOUNTER 2020-01-22 20:42 | Observation (INO) ==
[2020-01-22] MEDS ORDERED: SODIUM CHLORIDE 0.9% 500 ML IV STA (21:09)
[2020-01-22 21:38] LABS: Hematocrit (blood only) 45.9 % (37-47); Hemoglobin 15.4 g/dL (12.0-16.0); Mean Corpuscular Hemoglobin 32.4 pg (25-34); Mean Corpuscular Hgb Conc 33.6 g/dL (32-36); Mean Corpuscular Volume 96.6 fL (80-100); Mean Platelet Volume 10.2 fL (7.4-10.4); Platelet Count 228 K/uL (130-400); RDW Coefficient of Variation 12.6 % (11.5-14.5); RDW Standard Deviation 44.3 fL (36.4-46.3); Red Blood Count 4.75 M/uL (4.2-5.4); White Blood Count 9.67 K/uL (4.8-10.8)
[2020-01-22 21:42] LABS: Appearance Urine Clear (Clear); Bacteria Urine Automated 1+ (Negative); Bilirubin Urine Negative (Negative); Blood Urine Negative (Negative); Color Urine Dark Yellow; Epithelial Cell Urine Auto >30 /lpf (0-5); Glucose Urine UA Negative (Negative); Ketones Urine Trace (Negative); Leukocyte Esterase Urine Negative (Negative); Nitrite Urine Negative (Negative); Protein Urine 1+ (Negative); RBC Urine Automated 0-4 /hpf (0-4); Specific Gravity Urine 1.028 (1.000-1.030); Urobilinogen Urine Negative (Negative); pH Urine 5.5 (4.5-7.5)
--- NOTE | 2020-01-22 21:59 | Emergency Department Note ---
History of Present Illness General Chief complaint: Back Injury/Pain Stated complaint: ab pain, flank and back pain Time Seen by Provider: 01/22/20 21:49 History of Present Illness Maximum Pain Intensity: 4 This is a 64-year-old female that presents to the emergency department via private vehicle with complaints of "abdominal pain, flank and back pain". Patient notes that she began with epigastric/upper abdominal discomfort yesterday and it seemed to dissipate and then returned around 3 PM today. It progressively worsened. She then notes between 5:30 PM and 6 PM this evening this seemed to stop. The pain then seemed to moved to the flank region bilaterally. Patient denies any trauma or injury. The patient notes that is progressively worsened as well. She has never had pain quite like this before. She denies any chest pain or shortness of breath. No fevers or chills. No vomiting. No trauma or injury. Very mild nausea. Patient also notes that today while urinating she was unable to stop this which was unusual for her but denies any genital numbness, tingling or leg weakness. Very mild low back pain. No history of cauda equina. Overall discomfort at this time is a 4/10. Patient does not want any pain medication. She notes the pain is very minimal at this time. Home Medications Medication Instructions Recorded Confirmed Type furosemide 20 mg tablet 10 mg PO DAILY PRN #30 tab 04/10/19 01/22/20 Rx erythromycin ethylsuccinate 200 200 mg PO QID #100 ml 01/03/20 01/22/20 Rx mg/5 mL oral powder for suspension levothyroxine [Tirosint] 100 mcg PO DAILY 01/22/20 01/22/20 History Allergies Allergy/AdvReac Type Severity Reaction Status Date / Time ibuprofen Allergy Severe ELEVATED BP Verified 01/22/20 23:29 Iodinated Contrast Media Allergy Severe SHORTNESS Verified 01/22/20 23:29 OF BREATH procaine Allergy Severe DIFFICULTY Verified 01/22/20 23:29 BREATHING azithromycin Allergy Intermediate Hives Verified 01/22/20 23:29 Bactrim Allergy Intermediate HIVES; SOB Unverified 10/02/17 03:14 bupropion Allergy Intermediate SEVERE Verified 01/22/20 23:29 HEADACHE, WEAKNESS cefaclor Allergy Intermediate HIVES Verified 01/22/20 23:29 cephalexin Allergy Intermediate HIVES Verified 01/22/20 23:29 chlorpheniramine Allergy Intermediate SOB,PANIC Verified 01/22/20 23:29 ATTACK chocolate flavor Allergy Intermediate HIVES Verified 01/22/20 23:29 ciprofloxacin Allergy Intermediate HIVES Verified 01/22/20 23:29 codeine Allergy Intermediate SOB,PANIC Verified 01/22/20 23:29 ATTACK diphenhydramine Allergy Intermediate HIVES Verified 01/22/20 23:29 epinephrine Allergy Intermediate UNCONTROLLED Verified 01/22/20 23:29 SHAKING, ELEVATED BP fluoxetine Allergy Intermediate SEVERE Verified 01/22/20 23:29 HEADACHE lidocaine Allergy Intermediate UNCONTROLLED Verified 01/22/20 23:29 SHAKING, ELEVATED BP morphine Allergy Intermediate SEVERE Verified 01/22/20 23:29 HEADACHE nitrofurantoin Allergy Intermediate HIVES Verified 01/22/20 23:29 paroxetine Allergy Intermediate SEVERE Verified 01/22/20 23:29 HEADACHE Penicillins Allergy Intermediate HIVES Verified 01/22/20 23:29 strawberry Allergy Intermediate HIVES Verified 01/22/20 23:29 sulfamethoxazole Allergy Intermediate HIVES; SOB Verified 01/22/20 23:29 trimethoprim Allergy Intermediate HIVES; SOB Verified 01/22/20 23:29 latex Allergy Mild ITCHY RASH Verified 01/22/20 23:29 minocycline Allergy Mild HIVES Verified 01/22/20 23:29 Cipro Allergy Unknown HIVES Unverified 10/02/17 03:14 phenylpropanolamine Allergy Unknown SOB,PANIC Verified 01/22/20 23:29 ATTACK caffeine AdvReac Intermediate INCREASE BP Verified 01/22/20 23:29 clindamycin AdvReac Intermediate DIARRHEA Verified 01/22/20 23:29 tetracycline AdvReac Intermediate YEAST Verified 01/22/20 23:29 INFECTION CONTRAST DYE Allergy Intermediate SOB, HOT Uncoded 01/22/20 23:29 Past Med/Surg History Medical History (Updated 01/23/20 @ 04:37 by Bassem Pickett PA-C) Acid reflux Anxiety disorder BPPV (benign paroxysmal positional vertigo) Depression Fibromyalgia History of palpitations Hypercholesterolemia Hypertension Hypothyroidism Impaired fasting glucose Migraine Routine health maintenance Sciatica Ulnar nerve palsy Vertigo Surgical History (Updated 01/23/20 @ 02:11 by Paulina Rosas RN) H/O tooth extraction 19 teeth removed 2013 History of hysterectomy Total July 1996 History of nephrectomy Left kidney and ureter removed October 1996 History of thyroidectomy 2011 Hx laparoscopic cholecystectomy Family History Unknown Breast cancer Lung cancer Mother Hypertension Hypothyroidism Atrial fibrillation Varicose veins of lower extremity Breast cancer Cancer Heart disease Stroke Sister Psychosis Hypertension Father Coronary heart disease Type 1 diabetes mellitus Diabetes Heart disease Hypertension Brother Cancer Coronary heart disease Bladder cancer Emphysema, unspecified Diabetes Heart disease COPD (chronic obstructive pulmonary disease) Grandmother Stroke Social History Smoking Status: Former smoker packs per day: 1; Years Smoked: 40; Second Hand Exposure: No; Do You Dip or Chew Tobacco: No; Tobacco Cessation Education Requested by Patient: No Hx Alcohol Use: Yes Alcohol type: wine Alcohol Intake Frequency Comment: 2-4 glassess wine or 1-2 wine coolers a year Hx Substance Use: No Preferred Language: Syriac Communication Ability: Effective 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 Beliefs That Will Affect Care: None marital status: Current Living Situation: Alone current occupational status: retired 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[employer]FT[employer] Other Information That Helps Us Care for You: No Feels Safe at Home: Yes Safety Concerns: Feels Safe At This Time Seatbelt Use: always Assistive Devices: Denture - Upper, Denture - Lower and Glasses Review of Systems A total of 10 systems reviewed and were otherwise negative Physical Exam Vital Signs Vital Signs - 24 hr 01/22/20 20:44 01/22/20 22:21 01/22/20 23:35 Temperature 36.8 C Temperature Source Oral Pulse Rate 93 H Pulse Rate [Finger] 87 78 Respiratory Rate 18 20 22 Respiratory Effort / Characteristics Non-Labored Spontaneous Respiratory Depth Normal Normal Normal Respiratory Pattern Regular Blood Pressure 123/92 Blood Pressure Mean 102 Blood Pressure Position Sitting Pulse Oximetry 97 98 98 Oxygen Delivery Method Room Air Room Air Room Air Sepsis Recent Fever Within 48 Hours No Sepsis New/Unexplained Change in Mental Status No Sepsis Action Taken by Nursing No Action Required VITAL SIGNS - Vital signs and nursing notes were reviewed. Stable and afebrile. GENERAL -64-year-old female appearing her stated age who is in no acute distress. Communicates well with provider and answers questions appropriately. SKIN - Without rashes. No meningeal or petechial rash. HEAD - NC/AT. EYES - PERRL with EOMI bilaterally. Sclera anicteric. EARS - No deformities of external structures noted on gross examination bilaterally. NOSE - Midline and without cyanosis. No epistaxis or purulent drainage noted. MOUTH/OROPHARYNX - Without perioral cyanosis. NECK - Neck with FROM. No nuchal rigidity. LUNGS - Chest wall symmetric without accessory muscle use, intercostals retractions, or central cyanosis. Normal vesicular breath sounds CTA B/L. No wheezes, rales, or rhonchi appreciated. CARDIAC - RRR with S1/S2. No murmur, rubs, or gallops appreciated. ABDOMEN - Abdominal contour normal without pulsations or visible masses. BS normoactive all four quadrants. No tenderness, palpable masses, hepatosplenomegaly, or ascites noted. EXTREMITIES - No clubbing or peripheral cyanosis. No pretibial edema present.+5/5 strength noted in UE/LE bilaterally. NEUROLOGIC - Cranial nerves II through XII grossly intact. Sensory intact to light touch throughout. PSYCH - A&O, and cooperates fully with examiner. Pt is very pleasant and interacts well with examiner. Course Administered Medications Acetaminophen (Acetaminophen 1000 Mg/100 Ml Iv) 1,000 mg IV Q8 PRN PRN Reason: As Needed for Fever or Pain Stop: 01/26/20 02:24 Last Admin: 01/23/20 03:10 Dose: 1,000 mg Documented by: [id number] Famotidine 20 mg/ Syringe 5 mls @ 2.5 mls/min IV DAILY [facility] Stop: 02/22/20 08:59 Last Admin: 01/23/20 08:39 Dose: 2.5 mls/min Documented by: [id number] Lactated Ringer's (Lr) 1,000 mls @ 80 mls/hr IV .[id number] [facility] Stop: 01/24/20 02:46 Last Admin: 01/23/20 03:10 Dose: 80 mls/hr Documented by: [id number] Miscellaneous (Tirosint~Order Awaiting Action) 1 ea N/A QS [facility] Stop: 02/22/20 07:59 Last Admin: 01/23/20 14:51 Dose: Not Given Documented by: [id number] Ondansetron HCl (Ondansetron Inj 2 Mg/Ml 2 Ml Vial) 4 mg IV Q6H PRN PRN Reason: Nausea Stop: 02/22/20 01:46 Last Admin: 01/23/20 07:13 Dose: 4 mg Documented by: [id number] Discontinued Medications Sodium Chloride (Nss) 500 mls @ 999 mls/hr IV .Q31M STA Stop: 01/22/20 21:39 Last Infusion: 01/22/20 21:56 Dose: 0 mls/hr Documented by: [id number] Admin: 01/22/20 21:20 Dose: 999 mls/hr Documented by: [id number] Ketorolac Tromethamine (Ketorolac Tromethamine 15 Mg/Ml Vial) 15 mg IV NOW ONE Stop: 01/23/20 06:28 Last Admin: 01/23/20 07:13 Dose: 15 mg Documented by: [id number] Ondansetron HCl (Ondansetron Inj 2 Mg/Ml 2 Ml Vial) 4 mg IV NOW STA Stop: 01/22/20 23:13 Last Admin: 01/22/20 23:31 Dose: 4 mg Documented by: [id number] Medical Decision Making Laboratory Data Result diagrams: 01/22/20 21:25 01/23/20 02:35 Lab Results 01/22/20 01/22/20 01/22/20 Range/Units 21:13 21:25 21:25 WBC 9.67 (4.8-10.8) K/uL RBC 4.75 (4.2-5.4) M/uL Hgb 15.4 (12.0-16.0) g/dL Hct 45.9 (37-47) % MCV 96.6 (80-100) fL MCH 32.4 (25-34) pg MCHC 33.6 (32-36) g/dL RDW Std Deviation 44.3 (36.4-46.3) fL RDW Coeff of Govind 12.6 (11.5-14.5) % Plt Count 228 (130-400) K/uL MPV 10.2 (7.4-10.4) fL Sodium 138 (136-145) mmol/L Potassium (3.5-5.1) mmol/L Chloride 106 (98-107) mmol/L Carbon Dioxide 27 (21-32) mmol/L Anion Gap 5.0 (3-11) BUN 16 (7-18) mg/dl Creatinine 1.20 (0.6-1.2) mg/dl Est Cr Clr Drug Dosing 58.3 ml/min Est GFR ( Amer) 54.9 Est GFR (Non-Af Amer) 47.4 BUN/Creatinine Ratio 12.9 (10-20) Glucose 149 H (70-99) mg/dl Calcium 9.7 (8.5-10.1) mg/dl Troponin I < 0.015 (0-0.045) ng/ml Lipase 106 (73-393) U/L Urine Color Dark Yellow Urine Appearance Clear (Clear) Urine pH 5.5 (4.5-7.5) Ur Specific [place] 1.028 (1.000-1.030) Urine Protein 1+ H (Negative) Urine Glucose (UA) Negative (Negative) Urine Ketones Trace H (Negative) Urine Blood Negative (Negative) Urine Nitrite Negative (Negative) Urine Bilirubin Negative (Negative) Urine Urobilinogen Negative (Negative) Ur Leukocyte Esterase Negative (Negative) Urine WBC (Auto) 1-5 (0-5) /hpf Urine RBC (Auto) 0-4 (0-4) /hpf U Hyaline Cast (Auto) 1-5 (0-5) /lpf U Epithel Cells (Auto) >30 H (0-5) /lpf Urine Bacteria (Auto) 1+ H (Negative) COVID-19 Eval Order SARS-CoV-2, RNA, NAAT (NEGATIVE) 01/22/20 01/22/20 Range/Units 23:30 23:30 WBC (4.8-10.8) K/uL RBC (4.2-5.4) M/uL Hgb (12.0-16.0) g/dL Hct (37-47) % MCV (80-100) fL MCH (25-34) pg MCHC (32-36) g/dL RDW Std Deviation (36.4-46.3) fL RDW Coeff of Govind (11.5-14.5) % Plt Count (130-400) K/uL MPV (7.4-10.4) fL Sodium (136-145) mmol/L Potassium (3.5-5.1) mmol/L Chloride (98-107) mmol/L Carbon Dioxide (21-32) mmol/L Anion Gap (3-11) BUN (7-18) mg/dl Creatinine (0.6-1.2) mg/dl Est Cr Clr Drug Dosing ml/min Est GFR ( Amer) Est GFR (Non-Af Amer) BUN/Creatinine Ratio (10-20) Glucose (70-99) mg/dl Calcium (8.5-10.1) mg/dl Troponin I (0-0.045) ng/ml Lipase (73-393) U/L Urine Color Urine Appearance (Clear) Urine pH (4.5-7.5) Ur Specific [place] (1.000-1.030) Urine Protein (Negative) Urine Glucose (UA) (Negative) Urine Ketones (Negative) Urine Blood (Negative) Urine Nitrite (Negative) Urine Bilirubin (Negative) Urine Urobilinogen (Negative) Ur Leukocyte Esterase (Negative) Urine WBC (Auto) (0-5) /hpf Urine RBC (Auto) (0-4) /hpf U Hyaline Cast (Auto) (0-5) /lpf U Epithel Cells (Auto) (0-5) /lpf Urine Bacteria (Auto) (Negative) COVID-19 Eval Order Covid19 IDNow atMKYC SARS-CoV-2, RNA, NAAT NEGATIVE (NEGATIVE) Imaging Data Radiologist's Impression: CT ABDOMEN & PELVIS Without Contrast: Comparison to July 20, 2019 There are several borderline dilated fluid-filled small bowel loops in the left upper quadrant and completely decompressed distal small bowel loops. There is solid-appearing stool in the mid small bowel suggesting intermediate grade small bowel obstruction versus ileus. No perforation or abscess. Diverticulosis of the left, transverse, and sigmoid colon without focal acute diverticulitis. The appendix is normal. There is fatty infiltration of the liver. The liver size is within normal limits. There are 2 simple cysts measuring up to 1.6 cm. No solid mass lesion is seen. Previous cholecystectomy and previous left nephrectomy. Several calcifications in the right lower pelvis appear to be vascular and unchanged since previous. No evidence of ureterolithiasis. Mild degenerative changes in the lower lumbar spine. No acute fracture or bone lesion. Radiologist: Geo Warren MD Study ready at 22:23 and initial results transmitted at 22:53 MDM Narrative Patient was seen and evaluated as above in room A04. Review was performed of nursing notes and vital signs. I did review pertinent previous visits and patient history. After obtaining a thorough history and physical examination the above work up was performed. She presents to us today with abdominal pain. She is nontoxic on examination. Abdominal exam benign. Vital signs stable. Blood work was obtained. CT scan was obtained of the abdomen pelvis without contrast given the reported allergy. There are several borderline dilated fluid-filled small bowel loops in left upper quadrant and completely decompressed distal small bowel loops. This is suggesting indeterminate grade small bowel obstruction versus ileus. Labs reveal no leukocytosis or anemia. No emergent metabolic disturbance. Troponin negative. Urinalysis does not suggest infection. Covid testing was obtained per protocol given the patient will be admitted and was negative. EKG per my interpretation reveals normal sinus rhythm at a rate of 66 bpm. No ectopy or ischemic change. QTc 413. I recommended inpatient management given the CT scan finding and presentation. Patient was amenable to this. Patient respectfully declined NG tube. This was discussed with the hospitalist. Please refer to further documentation regarding her stay. Case was discussed with the attending physician. In the evaluation and treatment of this patient, the following differential diagnoses were considered: ASC, MO, Pneumonia, GERD, Cholecystitis, Ascending Cholangitis, Cholydocholithiasis, Bowel Obstruction, PE, Amongst Others. Attending Attestation: Nick Izaguirre MD independently saw and evaluated this patient and agree with history and physical is otherwise documented by the physician family assistant. See their note for full details. Patient with mild upper abdominal discomfo rt/tenderness on exam (not peritoneal and without guarding) resting in bed and states her nausea she thinks is improved. Given a few ice chips to moisten mouth. Hospitalist to see for monitoring/obs given concerns for sbo. Impression & Plan Small bowel obstruction Discharge Plan Visit Data Chief Complaint: Back Injury/Pain Stated Complaint: ab pain, flank and back pain ED Provider: Geo Izaguirre ED Midlevel Provider: Bassem Pickett Discharge Problem: Small bowel obstruction Patient Disposition: Admitted As Inpatient Discharge Instructions Interventions: ED Discharge Assessment Last Done: 01/23/20 01:37
[2020-01-22 22:04] LABS: BUN Creatinine Ratio 12.9 (10-20); Blood Urea Nitrogen 16 mg/dl (7-18); Calcium 9.7 mg/dl (8.5-10.1); Carbon Dioxide 27 mmol/L (21-32); Chloride 106 mmol/L (98-107); Creatinine Clr Calc Pharmacy 58.3 ml/min; Est GFR (African American) 54.9; Est GFR (Non-African American) 47.4; Glucose 149 mg/dl (70-99); Sodium 138 mmol/L (136-145)
[2020-01-22 22:32] LABS: Lipase 106 U/L (73-393)
[2020-01-22 22:51] LABS: Troponin I < 0.015 ng/ml (0-0.045)
[2020-01-22] MEDS ORDERED: ONDANSETRON INJ 2 MG/ML 2 ML VIAL IV STA (23:12)
--- NOTE | 2020-01-23 01:05 | History & Physical Report ---
Date of Service January 23, 2020 Assessment & Plan (1) Abdominal pain: Patient with two days of abdominal pain, ?SBO per imaging. Last BM yesterday - no flatus today. Abdomen is soft, tender but no peritoneal signs -NPO -KUB in AM -IVF and electrolyte repletion - awaiting repeat blood draw for hemolyzed K -General Surgery consultation appreciated -Zofran PRN nausea -Tylenol PRN pain -Pepcid 20mg IV daily Present on Admission?: Yes (2) Hypertension: Patient with elevated BP in the ER - she states that it is always high when checked with an automated cuff. Denies VIZCAINO/visual change/CP/SOB -Monitor BP -Currently no medications Present on Admission?: Yes (3) Hypothyroidism, postablative: Chronic -Continue Synthroid F/E/N - LR at 80mL/hr, awaiting electrolytes, NPO PPx - Low risk for DVT - encourage ambulation, IVF Code - Full per discussion with patient Dispo - Observation to medical Present on Admission?: Yes History of Present Illness Chief Complaint: Abdominal pain Primary Care Provider: Dae Tierney MD 64yo C female presenting with 2d of abdominal pain. Pain began in the epigastric region, moderate severity which resolved in a few hours. Pain returned yesterday around 17:30, epigastric with bandlike radiation around her chest and into back and flanks. Also with abdominal bloating and distention. Some nausea with no vomiting. +BM last on 01/22/20 at 19:20 - soft, non-bloody. Patient is not passing flatus at present but is belching. No additional complaints Pre-admission Covid testing as recommended by Infection Control - NEGATIVE ER Course: Zofran, NSS Allergies Allergy/AdvReac Type Severity Reaction Status Date / Time ibuprofen Allergy Severe ELEVATED BP Verified 01/22/20 23:29 Iodinated Contrast Media Allergy Severe SHORTNESS Verified 01/22/20 23:29 OF BREATH procaine Allergy Severe DIFFICULTY Verified 01/22/20 23:29 BREATHING azithromycin Allergy Intermediate Hives Verified 01/22/20 23:29 Bactrim Allergy Intermediate HIVES; SOB Unverified 10/02/17 03:14 bupropion Allergy Intermediate SEVERE Verified 01/22/20 23:29 HEADACHE, WEAKNESS cefaclor Allergy Intermediate HIVES Verified 01/22/20 23:29 cephalexin Allergy Intermediate HIVES Verified 01/22/20 23:29 chlorpheniramine Allergy Intermediate SOB,PANIC Verified 01/22/20 23:29 ATTACK chocolate flavor Allergy Intermediate HIVES Verified 01/22/20 23:29 ciprofloxacin Allergy Intermediate HIVES Verified 01/22/20 23:29 codeine Allergy Intermediate SOB,PANIC Verified 01/22/20 23:29 ATTACK diphenhydramine Allergy Intermediate HIVES Verified 01/22/20 23:29 epinephrine Allergy Intermediate UNCONTROLLED Verified 01/22/20 23:29 SHAKING, ELEVATED BP fluoxetine Allergy Intermediate SEVERE Verified 01/22/20 23:29 HEADACHE lidocaine Allergy Intermediate UNCONTROLLED Verified 01/22/20 23:29 SHAKING, ELEVATED BP morphine Allergy Intermediate SEVERE Verified 01/22/20 23:29 HEADACHE nitrofurantoin Allergy Intermediate HIVES Verified 01/22/20 23:29 paroxetine Allergy Intermediate SEVERE Verified 01/22/20 23:29 HEADACHE Penicillins Allergy Intermediate HIVES Verified 01/22/20 23:29 strawberry Allergy Intermediate HIVES Verified 01/22/20 23:29 sulfamethoxazole Allergy Intermediate HIVES; SOB Verified 01/22/20 23:29 trimethoprim Allergy Intermediate HIVES; SOB Verified 01/22/20 23:29 latex Allergy Mild ITCHY RASH Verified 01/22/20 23:29 minocycline Allergy Mild HIVES Verified 01/22/20 23:29 Cipro Allergy Unknown HIVES Unverified 10/02/17 03:14 phenylpropanolamine Allergy Unknown SOB,PANIC Verified 01/22/20 23:29 ATTACK caffeine AdvReac Intermediate INCREASE BP Verified 01/22/20 23:29 clindamycin AdvReac Intermediate DIARRHEA Verified 01/22/20 23:29 tetracycline AdvReac Intermediate YEAST Verified 01/22/20 23:29 INFECTION CONTRAST DYE Allergy Intermediate SOB, HOT Uncoded 01/22/20 23:29 Home Medications Medication Instructions Recorded Confirmed Type furosemide 20 mg tablet 10 mg PO DAILY PRN #30 tab 04/10/19 01/22/20 Rx erythromycin ethylsuccinate 200 200 mg PO QID #100 ml 01/03/20 01/22/20 Rx mg/5 mL oral powder for suspension levothyroxine [Tirosint] 100 mcg PO DAILY 01/22/20 01/22/20 History Past Med/Surg History Medical History (Updated 01/23/20 @ 03:00 by Paulina M Kelvin, DO) Acid reflux Anxiety disorder BPPV (benign paroxysmal positional vertigo) Depression Fibromyalgia History of palpitations Hypercholesterolemia Hypertension Hypothyroidism Impaired fasting glucose Migraine Routine health maintenance Sciatica Ulnar nerve palsy Vertigo Surgical History (Updated 01/23/20 @ 02:11 by Paulina Rosas RN) H/O tooth extraction 19 teeth removed 2013 History of hysterectomy Total July 1996 History of nephrectomy Left kidney and ureter removed October 1996 History of thyroidectomy 2010 Hx laparoscopic cholecystectomy Family History Unknown Breast cancer Lung cancer Mother Hypertension Hypothyroidism Atrial fibrillation Varicose veins of lower extremity Breast cancer Cancer Heart disease Stroke Sister Psychosis Hypertension Father Coronary heart disease Type 1 diabetes mellitus Diabetes Heart disease Hypertension Brother Cancer Coronary heart disease Bladder cancer Emphysema, unspecified Diabetes Heart disease COPD (chronic obstructive pulmonary disease) Grandmother Stroke Social History Smoking Status: Former smoker packs per day: 1; Years Smoked: 40; Second Hand Exposure: No; Do You Dip or Chew Tobacco: No; Tobacco Cessation Education Requested by Patient: No Hx Alcohol Use: Yes Alcohol type: wine Alcohol Intake Frequency Comment: 2-4 glassess wine or 1-2 wine coolers a year Hx Substance Use: No Preferred Language: Hebrew Communication Ability: Effective Rn Hospice Required: No Beliefs That Will Affect Care: None marital status: Current Living Situation: Alone current occupational status: retired 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[employer] Other Information That Helps Us Care for You: No Feels Safe at Home: Yes Safety Concerns: Feels Safe At This Time Seatbelt Use: always Assistive Devices: Denture - Upper, Denture - Lower and Glasses Review of Systems Review of Systems: All systems reviewed & are unremarkable except as noted in HPI & below Patient denies fever/chills/CP/palpitations/cough/SOB/diarrhea/dysuria Physical Exam Physical Exam: General: patient resting comfortably, NAD, non-toxic in appearance, AA&O x 4 Skin: warm, dry, intact, no rashes or lesions HEENT: NC/AT, PERRL, EOMI, anicteric sclera, conjunctiva without injection, e xternal ear normal to inspection and nontender, nares patent, moist mucus membranes, dentition intact, no oropharyngeal lesions, neck supple, trachea midline, no LAD, no thyromegaly, no JVD Heart: +S1/S2, regular, no m/r/g Lungs: equal air entry bilaterally, no rales/rhonchi/wheezes Abd: Diminished bowel sounds, soft, mildly tender with deep palpation most in LLQ with some voluntary guarding, no peritoneal signs, no masses/organomegaly/ascites Ext: warm, 2+ pulses in UE/LE bilaterally, no clubbing/cyanosis or edema Neuro: nonfocal, patient AA&O x 4, speech intact, no facial droop, moving all extremities on command with equal strength 5/5 Results & Data Results & Data ([facility]) Vital Signs (Past 12 Hours) Vital Signs Temp Pulse Pulse Resp BP Pulse Ox 01/22/20 23:35 78 22 98 01/22/20 22:21 87 20 98 01/22/20 20:44 36.8 C 93 H 18 123/92 97 Laboratory Results Lab Results 01/22/20 01/22/20 01/22/20 Range/Units 21:13 21:25 21:25 WBC 9.67 (4.8-10.8) K/uL RBC 4.75 (4.2-5.4) M/uL Hgb 15.4 (12.0-16.0) g/dL Hct 45.9 (37-47) % MCV 96.6 (80-100) fL MCH 32.4 (25-34) pg MCHC 33.6 (32-36) g/dL RDW Std Deviation 44.3 (36.4-46.3) fL RDW Coeff of Govind 12.6 (11.5-14.5) % Plt Count 228 (130-400) K/uL MPV 10.2 (7.4-10.4) fL Sodium 138 (136-145) mmol/L Potassium (3.5-5.1) mmol/L Chloride 106 (98-107) mmol/L Carbon Dioxide 27 (21-32) mmol/L Anion Gap 5.0 (3-11) BUN 16 (7-18) mg/dl Creatinine 1.20 (0.6-1.2) mg/dl Est Cr Clr Drug Dosing 58.3 ml/min Est GFR ( Amer) 54.9 Est GFR (Non-Af Amer) 47.4 BUN/Creatinine Ratio 12.9 (10-20) Glucose 149 H (70-99) mg/dl Calcium 9.7 (8.5-10.1) mg/dl Troponin I < 0.015 (0-0.045) ng/ml Lipase 106 (73-393) U/L Urine Color Dark Yellow Urine Appearance Clear (Clear) Urine pH 5.5 (4.5-7.5) Ur Specific [place] 1.028 (1.000-1.030) Urine Protein 1+ H (Negative) Urine Glucose (UA) Negative (Negative) Urine Ketones Trace H (Negative) Urine Blood Negative (Negative) Urine Nitrite Negative (Negative) Urine Bilirubin Negative (Negative) Urine Urobilinogen Negative (Negative) Ur Leukocyte Esterase Negative (Negative) Urine WBC (Auto) 1-5 (0-5) /hpf Urine RBC (Auto) 0-4 (0-4) /hpf U Hyaline Cast (Auto) 1-5 (0-5) /lpf U Epithel Cells (Auto) >30 H (0-5) /lpf Urine Bacteria (Auto) 1+ H (Negative) COVID-19 Eval Order SARS-CoV-2, RNA, NAAT (NEGATIVE) 01/22/20 01/22/20 Range/Units 23:30 23:30 WBC (4.8-10.8) K/uL RBC (4.2-5.4) M/uL Hgb (12.0-16.0) g/dL Hct (37-47) % MCV (80-100) fL MCH (25-34) pg MCHC (32-36) g/dL RDW Std Deviation (36.4-46.3) fL RDW Coeff of Govind (11.5-14.5) % Plt Count (130-400) K/uL MPV (7.4-10.4) fL Sodium (136-145) mmol/L Potassium (3.5-5.1) mmol/L Chloride (98-107) mmol/L Carbon Dioxide (21-32) mmol/L Anion Gap (3-11) BUN (7-18) mg/dl Creatinine (0.6-1.2) mg/dl Est Cr Clr Drug Dosing ml/min Est GFR ( Amer) Est GFR (Non-Af Amer) BUN/Creatinine Ratio (10-20) Glucose (70-99) mg/dl Calcium (8.5-10.1) mg/dl Troponin I (0-0.045) ng/ml Lipase (73-393) U/L Urine Color Urine Appearance (Clear) Urine pH (4.5-7.5) Ur Specific [place] (1.000-1.030) Urine Protein (Negative) Urine Glucose (UA) (Negative) Urine Ketones (Negative) Urine Blood (Negative) Urine Nitrite (Negative) Urine Bilirubin (Negative) Urine Urobilinogen (Negative) Ur Leukocyte Esterase (Negative) Urine WBC (Auto) (0-5) /hpf Urine RBC (Auto) (0-4) /hpf U Hyaline Cast (Auto) (0-5) /lpf U Epithel Cells (Auto) (0-5) /lpf Urine Bacteria (Auto) (Negative) COVID[facility]19 [facility] SARS-CoV-2, RNA, NAAT NEGATIVE (NEGATIVE) Diagnostic Findings CT Abdomen and Pelvis - Several borderline dilated fluid-filled small bowel loops in the LUQ and completely decompressed distal small bowel loops. There is solid-appearing stool in the mid small bowel suggesting intermediate grade JOSE FRANCISCO vs ileus. No performation or abscess. Diverticulosis of the left, transverse and sigmoid colon without focal acute diverticulitis. The appendix is normal. There is fatty infiltration of the liver, size is within normal limits. Two simple cysts measuring up to 1.6cm. No solid mass lesion is seen. Previous cholecystectomy and previous left nephrectomy. Several calcifications in the right lower pelvis appear to be vascular and unchanged since previous. No evidence of ureterolithiasis. Mild degenerative changes in the lower lumbar spine. No acute fracture or bone lesion. PG Care Time/CCT Total # of Minutes Spent Total Time Spent with Patient: Total time spent is greater than 50% in coordination of care (as documented) at patient's floor/unit and/or counseling patient: Coding Level of Care Code 10395 OBS Care - Level 2 Diagnoses Abdominal pain R10.12 Abdominal location: left upper quadrant Hypertension I10 Hypertension type: essential hypertension Hypothyroidism, postablative E89.0 (1) Hypertension Hypertension type: essential hypertension Qualified Code(s): I10 - Essential (primary) hypertension (2) Abdominal pain Abdominal location: left upper quadrant Qualified Code(s): R10.12 - Left upper quadrant pain
[2020-01-23] MEDS ORDERED: ACETAMINOPHEN 325 MG TAB PO PRN (01:47)
[2020-01-23] MEDS ORDERED: ONDANSETRON INJ 2 MG/ML 2 ML VIAL IV PRN (01:47)
[2020-01-23] MEDS: LACTATED RINGER'S 1,000 ML IV SCH ×2 (03:10→15:11)
[2020-01-23] MEDS: ACETAMINOPHEN 1000 MG/100 ML IV IV PRN (03:10)
[2020-01-23 03:12] LABS: Magnesium 2.2 mg/dl (1.8-2.4); Phosphorus 2.7 mg/dl (2.5-4.9)
[2020-01-23] MEDS ORDERED: KETOROLAC TROMETHAMINE 15 MG/ML VIAL IV ONE (06:27)
--- NOTE | 2020-01-23 07:59 | CT Scan Report ---
CT SCAN OF THE ABDOMEN AND PELVIS WITHOUT IV CONTRAST CLINICAL HISTORY: Upper abdominal and flank pain. COMPARISON STUDY: Abdominal CT dated 07/20/2019. TECHNIQUE: CT scan of the abdomen and pelvis is performed from the lung bases to the proximal femora. Images are reviewed in the axial, sagittal, and coronal planes. IV contrast was not administered for this examination. Note that the examination is suboptimal without oral and IV contrast. A dose lower ing technique was utilized adhering to the principles of ALARA. CT DOSE: 1415.94 mGy.cm FINDINGS: Lung bases: The heart is normal in size and without pericardial effusion. There are coronary artery c alcifications. A small hiatal hernia is noted. The lung bases are clear. Liver: The unenhanced liver is top normal in size and demonstrates diffusely diminished attenuation c onsistent with hepatic steatosis. There is no intrahepatic biliary ductal dilatation. There are least 2 hepatic cysts which measure up to 2.3 cm. Gallbladder: Surgically absent noting clips in the gallbladder fossa. Spleen: Normal in size and attenuation. Pancreas: Unremarkable. Adrenal glands: Unremarkable. Kidneys: The left kidney is surgically absent. The unenhanced right kidney is normal in size and with out hydronephrosis. There are no right renal calculi. There is no evidence of contour deforming renal mass lesion. Abdominal vasculature: The abdominal aorta is normal in course and caliber noting moderate atheroscle rotic calcification. Bowel: There are distended and fluid-filled loops of jejunum in the left upper quadrant which measure up to 3.3 cm in diameter. The distal small bowel and colon are decompressed, and the appearance is c onsistent with a small bowel obstruction. Trace interloop fluid is noted. Transition points are not w ell delineated, and the location and the left upper quadrant raises concern for internal hernia. Ther e is moderate colonic diverticulosis without CT evidence of acute diverticulitis. The appendix is we ll-visualized and normal. Peritoneum: There is no intraperitoneal free air or abdominal ascites. There is a fat-containing umbi lical hernia. Lymphadenopathy: None. Pelvic viscera: The bladder is normal as visualized. The uterus is surgically absent. No adnexal lesi on is seen. Skeletal structures: The skeletal structures are osteopenic. Mild/moderate lumbosacral spondylosis is observed. No lytic or blastic lesions are seen. IMPRESSION: 1. There are distended and fluid-filled loops of jejunum in the left upper quadrant consistent with a small bowel obstruction. 2. Although transition points are not well delineated, the location and appearance raises concern for an internal hernia/closed loop type obstruction. Surgical consultation is advised. 3. Status post left nephrectomy. 4. Hepatic steatosis. 5. Moderate colonic diverticulosis without CT evidence of acute diverticulitis. ACT 112: Negative or not required by law. Electronically signed by: Jonn Landon M.D. 01/23/2020 7:58 AM
[2020-01-23] MEDS: FAMOTIDINE 20 MG in SYRINGE 3 ML IV SCH (08:39)
--- NOTE | 2020-01-23 09:41 | XRay Report ---
KUB HISTORY: Abnormal CT. ?Ileus vs SBO COMPARISON: Abdomen and pelvis CT 01/22/2020. FINDINGS: There are a few mildly dilated gas-filled loops of small bowel within the left upper quadra nt. These measure up to 3.6 cm in diameter. This remains unchanged. Findings could represent an ileus versus small bowel obstruction. There are surgical clips within the left upper quadrant. Prior erin cystectomy. No renal calculi. No ureteral calculi. Calcifications in the deep pelvis likely represen t phleboliths. No pneumoperitoneum or pneumatosis. IMPRESSION: No change in the mildly dilated gas-filled loops of small bowel within the left upper quadrant. This could represent a bowel obstruction versus ileus. ACT 112: Negative or not required by law. Electronically signed by: Ken Fields M.D. 01/23/2020 9:39 AM
--- NOTE | 2020-01-23 10:40 | Surgery Consultation ---
Date of Consultation January 23, 2020 Assessment & Plan (1) Small bowel obstruction: This patient had nausea that has improved. Her abdominal pain is almost completely resolved. She is no longer distended. She is not yet passing flatus. There is no evidence of peritonitis. I reviewed the CT scan with one of the radiologist. There is very low suspicion for an internal hernia based on those images. I do not feel that there is any need for surgical intervention at this time. Would continue with conservative measures for now. History of Present Illness Reason for Consultation: Abdominal pain, possible small bowel obstruction Requesting Physician: Ghanshyam French MD Attending Physician: Ghanshyam French MD History of Present Illness I have been asked by Dr. French to see this 64-year-old female who presented to the emergency room with abdominal pain and nausea. She was also bloated. She states that she ate some Jell-O yesterday after which she developed discomfort in the epigastric area. It was a dull ache but then escalated to a very sharp pain and then returned back to a dull ache. It was initially episodic but then continuous. After becoming continuous is radiated around to her back in both directions with no side predominating. She had nausea but did not vomit. She had a bowel movement last night. She has been feeling as if she needs to pass her bowels or pass gas but when she stands the sensation disappears. At present she still has some mild nausea. The abdominal discomfort has decreased significantly. She is no longer distended. Allergies Allergy/AdvReac Type Severity Reaction Status Date / Time ibuprofen Allergy Severe ELEVATED BP Verified 01/22/20 23:29 Iodinated Contrast Media Allergy Severe SHORTNESS Verified 01/22/20 23:29 OF BREATH procaine Allergy Severe DIFFICULTY Verified 01/22/20 23:29 BREATHING azithromycin Allergy Intermediate Hives Verified 01/22/20 23:29 Bactrim Allergy Intermediate HIVES; SOB Unverified 10/02/17 03:14 bupropion Allergy Intermediate SEVERE Verified 01/22/20 23:29 HEADACHE, WEAKNESS cefaclor Allergy Intermediate HIVES Verified 01/22/20 23:29 cephalexin Allergy Intermediate HIVES Verified 01/22/20 23:29 chlorpheniramine Allergy Intermediate SOB,PANIC Verified 01/22/20 23:29 ATTACK chocolate flavor Allergy Intermediate HIVES Verified 01/22/20 23:29 ciprofloxacin Allergy Intermediate HIVES Verified 01/22/20 23:29 codeine Allergy Intermediate SOB,PANIC Verified 01/22/20 23:29 ATTACK diphenhydramine Allergy Intermediate HIVES Verified 01/22/20 23:29 epinephrine Allergy Intermediate UNCONTROLLED Verified 01/22/20 23:29 SHAKING, ELEVATED BP fluoxetine Allergy Intermediate SEVERE Verified 01/22/20 23:29 HEADACHE lidocaine Allergy Intermediate UNCONTROLLED Verified 01/22/20 23:29 SHAKING, ELEVATED BP morphine Allergy Intermediate SEVERE Verified 01/22/20 23:29 HEADACHE nitrofurantoin Allergy Intermediate HIVES Verified 01/22/20 23:29 paroxetine Allergy Intermediate SEVERE Verified 01/22/20 23:29 HEADACHE Penicillins Allergy Intermediate HIVES Verified 01/22/20 23:29 strawberry Allergy Intermediate HIVES Verified 01/22/20 23:29 sulfamethoxazole Allergy Intermediate HIVES; SOB Verified 01/22/20 23:29 trimethoprim Allergy Intermediate HIVES; SOB Verified 01/22/20 23:29 latex Allergy Mild ITCHY RASH Verified 01/22/20 23:29 minocycline Allergy Mild HIVES Verified 01/22/20 23:29 Cipro Allergy Unknown HIVES Unverified 10/02/17 03:14 phenylpropanolamine Allergy Unknown SOB,PANIC Verified 01/22/20 23:29 ATTACK caffeine AdvReac Intermediate INCREASE BP Verified 01/22/20 23:29 clindamycin AdvReac Intermediate DIARRHEA Verified 01/22/20 23:29 tetracycline AdvReac Intermediate YEAST Verified 01/22/20 23:29 INFECTION CONTRAST DYE Allergy Intermediate SOB, HOT Uncoded 01/22/20 23:29 Home Medications Medication Instructions Recorded Confirmed Type furosemide 20 mg tablet 10 mg PO DAILY PRN #30 tab 04/10/19 01/22/20 Rx erythromycin ethylsuccinate 200 200 mg PO QID #100 ml 01/03/20 01/22/20 Rx mg/5 mL oral powder for suspension levothyroxine [Tirosint] 100 mcg PO DAILY 01/22/20 01/22/20 History Patient History Medical History (Updated 01/23/20 @ 04:37 by Bassem Pickett PA-C) Acid reflux Anxiety disorder BPPV (benign paroxysmal positional vertigo) Depression Fibromyalgia History of palpitations Hypercholesterolemia Hypertension Hypothyroidism Impaired fasting glucose Migraine Routine health maintenance Sciatica Ulnar nerve palsy Vertigo Surgical History (Updated 11/17/20 @ 02:11 by Paulina Rosas RN) H/O tooth extraction 19 teeth removed 2013 History of hysterectomy Total July 1996 History of nephrectomy Left kidney and ureter removed October 1996 History of thyroidectomy 2011 Hx laparoscopic cholecystectomy Family History Unknown Breast cancer Lung cancer Mother Hypertension Hypothyroidism Atrial fibrillation Varicose veins of lower extremity Breast cancer Cancer Heart disease Stroke Sister Psychosis Hypertension Father Coronary heart disease Type 1 diabetes mellitus Diabetes Heart disease Hypertension Brother Cancer Coronary heart disease Bladder cancer Emphysema, unspecified Diabetes Heart disease COPD (chronic obstructive pulmonary disease) Grandmother Stroke Social History Smoking Status: Former smoker packs per day: 1; Years Smoked: 40; Second Hand Exposure: No; Do You Dip or Chew Tobacco: No; Tobacco Cessation Education Requested by Patient: No Hx Alcohol Use: Yes Alcohol type: wine Alcohol Intake Frequency Comment: 2-4 glassess wine or 1-2 wine coolers a year Hx Substance Use: No Preferred Language: Romanian Communication Ability: Effective Manufacturing Mechanic Required: No Beliefs That Will Affect Care: None marital status: Current Living Situation: Alone 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 occupational 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 Other Information That Helps Us Care for You: No Feels Safe at Home: Yes Safety Concerns: Feels Safe At This Time Seatbelt Use: always Assistive Devices: Denture - Upper, Denture - Lower and Glasses Review of Systems Review of Systems: All systems reviewed & are unremarkable except as noted in HPI & below Physical Exam Constitutional: no acute distress Neck: + trachea not midline Respiratory: normal respiratory effort, lungs clear to auscultation Cardiovascular: Rate/Rhythm: regular rate and regular rhythm Gastrointestinal (Abdomen): Inspection/Auscultation: normal bowel sounds; abdomen not distended Percussion/Palpation: + abdomen tender (Minimal tenderness in the periumbilical area ) and abdomen soft Skin: no rashes, warm and dry Lymphatic: no cervical lymphadenopathy Results & Data ([facility]) Vital Signs (Past 12 Hours) Vital Signs Temp Pulse Pulse Resp BP BP Pulse Ox 01/23/20 08:14 36.7 C 76 16 170/99 H 95 01/23/20 01:53 167/88 H 01/23/20 01:45 36.6 C 81 18 100 01/23/20 01:37 81 18 153/72 H 98 01/22/20 23:35 78 22 98 Laboratory Results 01/23/20 01/22/20 01/22/20 Range/Units 02:35 23:30 23:30 WBC (4.8-10.8) K/uL RBC (4.2-5.4) M/uL Hgb (12.0-16.0) g/dL Hct (37-47) % MCV (80-100) fL MCH (25-34) pg MCHC (32-36) g/dL RDW Std Deviation (36.4-46.3) fL RDW Coeff of Govind (11.5-14.5) % Plt Count (130-400) K/uL MPV (7.4-10.4) fL Sodium (136-145) mmol/L Potassium 4.0 (3.5-5.1) mmol/L Chloride (98-107) mmol/L Carbon Dioxide (21-32) mmol/L Anion Gap (3-11) BUN (7-18) mg/dl Creatinine (0.6-1.2) mg/dl Est Cr Clr Drug Dosing ml/min Est GFR ( Amer) Est GFR (Non-Af Amer) BUN/Creatinine Ratio (10-20) Glucose (70-99) mg/dl Calcium (8.5-10.1) mg/dl Phosphorus 2.7 (2.5-4.9) mg/dl Magnesium 2.2 (1.8-2.4) mg/dl Troponin I (0-0.045) ng/ml Lipase (73-393) U/L Urine Color Urine Appearance (Clear) Urine pH (4.5-7.5) Ur Specific [place] (1.000-1.030) Urine Protein (Negative) Urine Glucose (UA) (Negative) Urine Ketones (Negative) Urine Blood (Negative) Urine Nitrite (Negative) Urine Bilirubin (Negative) Urine Urobilinogen (Negative) Ur Leukocyte Esterase (Negative) Urine WBC (Auto) (0-5) /hpf Urine RBC (Auto) (0-4) /hpf U Hyaline Cast (Auto) (0-5) /lpf U Epithel Cells (Auto) (0-5) /lpf Urine Bacteria (Auto) (Negative) COVID-19 Eval [facility] SARS-CoV-2, RNA, NAAT NEGATIVE (NEGATIVE) 01/22/20 01/22/20 01/22/20 Range/Units 21:25 21:25 21:13 WBC 9.67 (4.8-10.8) K/uL RBC 4.75 (4.2-5.4) M/uL Hgb 15.4 (12.0-16.0) g/dL Hct 45.9 (37-47) % MCV 96.6 (80-100) fL MCH 32.4 (25-34) pg MCHC 33.6 (32-36) g/dL RDW Std Deviation 44.3 (36.4-46.3) fL RDW Coeff of Govind 12.6 (11.5-14.5) % Plt Count 228 (130-400) K/uL MPV 10.2 (7.4-10.4) fL Sodium 138 (136-145) mmol/L Potassium (3.5-5.1) mmol/L Chloride 106 (98-107) mmol/L Carbon Dioxide 27 (21-32) mmol/L Anion Gap 5.0 (3-11) BUN 16 (7-18) mg/dl Creatinine 1.20 (0.6-1.2) mg/dl Est Cr Clr Drug Dosing 58.3 ml/min Est GFR ( Amer) 54.9 Est GFR (Non-Af Amer) 47.4 BUN/Creatinine Ratio 12.9 (10-20) Glucose 149 H (70-99) mg/dl Calcium 9.7 (8.5-10.1) mg/dl Phosphorus (2.5-4.9) mg/dl Magnesium (1.8-2.4) mg/dl Troponin I < 0.015 (0-0.045) ng/ml Lipase 106 (73-393) U/L Urine Color Dark Yellow Urine Appearance Clear (Clear) Urine pH 5.5 (4.5-7.5) Ur Specific [place] 1.028 (1.000-1.030) Urine Protein 1+ H (Negative) Urine Glucose (UA) Negative (Negative) Urine Ketones Trace H (Negative) Urine Blood Negative (Negative) Urine Nitrite Negative (Negative) Urine Bilirubin Negative (Negative) Urine Urobilinogen Negative (Negative) Ur Leukocyte Esterase Negative (Negative) Urine WBC (Auto) 1-5 (0-5) /hpf Urine RBC (Auto) 0-4 (0-4) /hpf U Hyaline Cast (Auto) 1-5 (0-5) /lpf U Epithel Cells (Auto) >30 H (0-5) /lpf Urine Bacteria (Auto) 1+ H (Negative) COVID-19 Eval Order SARS-CoV-2, RNA, NAAT (NEGATIVE) Diagnostic Findings CT SCAN OF THE ABDOMEN AND PELVIS WITHOUT IV CONTRAST CLINICAL HISTORY: Upper abdominal and flank pain. COMPARISON STUDY: Abdominal CT dated 07/20/2019. TECHNIQUE: CT scan of the abdomen and pelvis is performed from the lung bases to the proximal femora. Images are reviewed in the axial, sagittal, and coronal planes. IV contrast was not administered for this examination. Note that the e xamination is suboptimal without oral and IV contrast. A dose lowering technique was utilized adhering to the principles of ALARA. CT DOSE: 1415.94 mGy.cm FINDINGS: Lung bases: The heart is normal in size and without pericardial effusion. There are coronary artery calcifications. A small hiatal hernia is noted. The lung bases are clear. Liver: The unenhanced liver is top normal in size and demonstrates diffusely diminished attenuation consistent with hepatic steatosis. There is no intrahepatic biliary ductal dilatation. There are least 2 hepatic cysts which measure up to 2.3 cm. Gallbladder: Surgically absent noting clips in the gallbladder fossa. Spleen: Normal in size and attenuation. Pancreas: Unremarkable. Adrenal glands: Unremarkable. Kidneys: The left kidney is surgically absent. The unenhanced right kidney is normal in size and without hydronephrosis. There are no right renal calculi. There is no evidence of contour deforming renal mass lesion. Abdominal vasculature: The abdominal aorta is normal in course and caliber noting moderate atherosclerotic calcification. Bowel: There are distended and fluid-filled loops of jejunum in the left upper quadrant which measure up to 3.3 cm in diameter. The distal small bowel and colon are decompressed, and the appearance is consistent with a small bowel obstruction. Trace interloop fluid is noted. Transition points are not well delineated, and the location and the left upper quadrant raises concern for internal hernia. There is moderate colonic diverticulosis without CT evidence of acute diverticulitis. The appendix is well-visualized and normal. Peritoneum: There is no intraperitoneal free air or abdominal ascites. There is a fat-containing umbilical hernia. Lymphadenopathy: None. Pelvic viscera: The bladder is normal as visualized. The uterus is surgically absent. No adnexal lesion is seen. Skeletal structures: The skeletal structures are osteopenic. Mild/moderate lumbosacral spondylosis is observed. No lytic or blastic lesions are seen. IMPRESSION: 1. There are distended and fluid-filled loops of jejunum in the left upper quadrant consistent with a small bowel obstruction. 2. Although transition points are not well delineated, the location and appearance raises concern for an internal hernia/closed loop type obstruction. Surgical consultation is advised. 3. Status post left nephrectomy. 4. Hepatic steatosis. 5. Moderate colonic diverticulosis without CT evidence of acute diverticulitis.
--- NOTE | 2020-01-23 12:29 | Hospitalist Progress Note ---
Date of Service January 23, 2020 Assessment & Plan (1) Abdominal pain: * Patient with two days of abdominal pain, SBO per imaging. Last BM 01/20 - no flatus today. Abdomen is soft, tender but no peritoneal signs * NPO * KUB unchanged, continue daily * General surgery consulted -- appreciate assistance. Conservative at this time * IVF LR @70cc/hr * Pain, antiemetics prn * Electrolyte repletion as needed * Pepcid IV daily (2) Hypertension: * Patient with elevated BP in the ER - she states that it is always high when checked with an automated cuff. Denies VIZCAINO/visual change/CP/SOB * Not on any medications * BP elevated to 170/99 -- could be some component of pain. Asymptomatic * Continue to monitor (3) Hypothyroidism, postablative: * Chronic * Continue Synthroid PPx - Low risk for DVT - encourage ambulation, IVF Code - Full per discussion with patient Dispo - continued conservative treatment. KUB in AM Admission and Anticipated Discharge Date Admission Date: January 23, 2020 Subjective BRIDGE NOTE as patient admitted after midnight. Patient seen this morning. Abdominal pain to LUQ significantly decreased and denies pain at this time. Nausea improved. No vomiting noted. No flatus or BM yet. Seen by general surgery who does not believe surgery indicated at this time and will continue with conservative treatment. Review of Systems Review of Systems: All systems reviewed & are unremarkable except as noted in HPI & below Results & Data Results & Data ([facility]) Vital Signs (Past 12 Hours) Vital Signs Temp Pulse Pulse Resp BP BP Pulse Ox 01/23/20 08:14 36.7 C 76 16 170/99 H 95 01/23/20 01:53 167/88 H 01/23/20 01:45 36.6 C 81 18 100 01/23/20 01:37 81 18 153/72 H 98 Laboratory Results 01/23/20 01/22/20 01/22/20 Range/Units 02:35 23:30 23:30 WBC (4.8-10.8) K/uL RBC (4.2-5.4) M/uL Hgb (12.0-16.0) g/dL Hct (37-47) % MCV (80-100) fL MCH (25-34) pg MCHC (32-36) g/dL RDW Std Deviation (36.4-46.3) fL RDW Coeff of Govind (11.5-14.5) % Plt Count (130-400) K/uL MPV (7.4-10.4) fL Sodium (136-145) mmol/L Potassium 4.0 (3.5-5.1) mmol/L Chloride (98-107) mmol/L Carbon Dioxide (21-32) mmol/L Anion Gap (3-11) BUN (7-18) mg/dl Creatinine (0.6-1.2) mg/dl Est Cr Clr Drug Dosing ml/min Est GFR ( Amer) Est GFR (Non-Af Amer) BUN/Creatinine Ratio (10-20) Glucose (70-99) mg/dl Calcium (8.5-10.1) mg/dl Phosphorus 2.7 (2.5-4.9) mg/dl Magnesium 2.2 (1.8-2.4) mg/dl Troponin I (0-0.045) ng/ml Lipase (73-393) U/L Urine Color Urine Appearance (Clear) Urine pH (4.5-7.5) Ur Specific [place] (1.000-1.030) Urine Protein (Negative) Urine Glucose (UA) (Negative) Urine Ketones (Negative) Urine Blood (Negative) Urine Nitrite (Negative) Urine Bilirubin (Negative) Urine Urobilinogen (Negative) Ur Leukocyte Esterase (Negative) Urine WBC (Auto) (0-5) /hpf Urine RBC (Auto) (0-4) /hpf U Hyaline Cast (Auto) (0-5) /lpf U Epithel Cells (Auto) (0-5) /lpf Urine Bacteria (Auto) (Negative) COVID-19 Eval Order Covid19 IDNow [facility] SARS-CoV-2, RNA, NAAT NEGATIVE (NEGATIVE) 01/22/20 01/22/20 01/22/20 Range/Units 21:25 21:25 21:13 WBC 9.67 (4.8-10.8) K/uL RBC 4.75 (4.2-5.4) M/uL Hgb 15.4 (12.0-16.0) g/dL Hct 45.9 (37-47) % MCV 96.6 (80-100) fL MCH 32.4 (25-34) pg MCHC 33.6 (32-36) g/dL RDW Std Deviation 44.3 (36.4-46.3) fL RDW Coeff of Govind 12.6 (11.5-14.5) % Plt Count 228 (130-400) K/uL MPV 10.2 (7.4-10.4) fL Sodium 138 (136-145) mmol/L Potassium (3.5-5.1) mmol/L Chloride 106 (98-107) mmol/L Carbon Dioxide 27 (21-32) mmol/L Anion Gap 5.0 (3-11) BUN 16 (7-18) mg/dl Creatinine 1.20 (0.6-1.2) mg/dl Est Cr Clr Drug Dosing 58.3 ml/min Est GFR ( Amer) 54.9 Est GFR (Non-Af Amer) 47.4 BUN/Creatinine Ratio 12.9 (10-20) Glucose 149 H (70-99) mg/dl Calcium 9.7 (8.5-10.1) mg/dl Phosphorus (2.5-4.9) mg/dl Magnesium (1.8-2.4) mg/dl Troponin I < 0.015 (0-0.045) ng/ml Lipase 106 (73-393) U/L Urine Color Dark Yellow Urine Appearance Clear (Clear) Urine pH 5.5 (4.5-7.5) Ur Specific [place] 1.028 (1.000-1.030) Urine Protein 1+ H (Negative) Urine Glucose (UA) Negative (Negative) Urine Ketones Trace H (Negative) Urine Blood Negative (Negative) Urine Nitrite Negative (Negative) Urine Bilirubin Negative (Negative) Urine Urobilinogen Negative (Negative) Ur Leukocyte Esterase Negative (Negative) Urine WBC (Auto) 1-5 (0-5) /hpf Urine RBC (Auto) 0-4 (0-4) /hpf U Hyaline Cast (Auto) 1-5 (0-5) /lpf U Epithel Cells (Auto) >30 H (0-5) /lpf Urine Bacteria (Auto) 1+ H (Negative) COVID-19 Eval Order SARS-CoV-2, RNA, NAAT (NEGATIVE) Diagnostic Findings CTA/P IMPRESSION: 1. There are distended and fluid-filled loops of jejunum in the left upper quadrant consistent with a small bowel obstruction. 2. Although transition points are not well delineated, the location and appearance raises concern for an internal hernia/closed loop type obstruction. Surgical consultation is advised. 3. Status post left nephrectomy. 4. Hepatic steatosis. 5. Moderate colonic diverticulosis without CT evidence of acute diverticulitis. KUB IMPRESSION: No change in the mildly dilated gas-filled loops of small bowel within the left upper quadrant. This could represent a bowel obstruction versus ileus. PG Care Time/CCT Total # of Minutes Spent Total Time Spent with Patient: Total time spent is greater than 50% in coordination of care (as documented) at patient's floor/unit and/or counseling patient: Coding Level of Care Code None Diagnoses Abdominal pain R10.12 Abdominal location: left upper quadrant Hypertension I10 Hypertension type: essential hypertension Hypothyroidism, postablative E89.0 (1) Abdominal pain Abdominal location: left upper quadrant Qualified Code(s): R10.12 - Left upper quadrant pain (2) Hypertension Hypertension type: essential hypertension Qualified Code(s): I10 - Essential (primary) hypertension
--- NOTE | 2020-01-23 16:51 | Electrocardiogram Report ---
Test Reason : Blood Pressure : / mmHG Vent. Rate : 066 BPM Atrial Rate : 066 BPM P-R Int : 164 ms QRS Dur : 090 ms QT Int : 394 ms P-R-T Axes : 061 015 060 degrees QTc Int : 413 ms Normal sinus rhythm Possible Left atrial enlargement Borderline ECG When compared with ECG of 20-JUL-2019 20:06, No significant change was found Confirmed by Lamont Hercules ([id number]) on 01/23/2020 4:51:18 PM Referred By: REFERRED SELF Confirmed By:Lamont Hercules
[2020-01-24 00:42] VITALS: TEMP 98.2
[2020-01-24] MEDS ORDERED: TIROSINT 100 MCG PO SCH (06:30)
[2020-01-24 06:54] LABS: Hematocrit (blood only) 44.4 % (37-47); Hemoglobin 14.8 g/dL (12.0-16.0); Mean Corpuscular Hemoglobin 32.9 pg (25-34); Mean Corpuscular Hgb Conc 33.3 g/dL (32-36); Mean Corpuscular Volume 98.7 fL (80-100); Mean Platelet Volume 10.5 fL (7.4-10.4); Platelet Count 217 K/uL (130-400); RDW Coefficient of Variation 12.6 % (11.5-14.5); RDW Standard Deviation 45.2 fL (36.4-46.3); White Blood Count 7.57 K/uL (4.8-10.8)
[2020-01-24 07:12] LABS: Albumin Level 3.5 gm/dl (3.4-5.0); BUN Creatinine Ratio 11.2 (10-20); Calcium 9.2 mg/dl (8.5-10.1); Creatinine Clr Calc Pharmacy 63.1 ml/min; Est GFR (African American) 60.4; Est GFR (Non-African American) 52.1; Magnesium 2.2 mg/dl (1.8-2.4); Potassium 3.7 mmol/L (3.5-5.1)
[2020-01-24] MEDS: ACETAMINOPHEN 1000 MG/100 ML IV IV PRN (07:19)
[2020-01-24 07:22] LABS: Bilirubin,Total 0.7 mg/dl (0.2-1); Globulin 3.4 gm/dl (2.5-4.0); Thyroid Stimulating Hormone 3.9 uIu/ml (0.300-4.500); Total Protein 6.9 gm/dl (6.4-8.2)
[2020-01-24 07:41] VITALS: PULSE 58; O2SAT 97
--- NOTE | 2020-01-24 08:48 | XRay Report ---
KUB HISTORY: Follow-up study in a patient with small bowel obstruction f/u SBO COMPARISON: KUB 01/23/2020 FINDINGS: Resolution of the previously noted dilated loops of small bowel. Bowel gas pattern appears nonobstructive. There is noted within the ascending colon. Mild fecal retention. Surgical clips of th e central abdomen and abdominal right upper quadrant. No renal calculi. No ureteral calculi. No pneu moperitoneum or pneumatosis. No fracture. IMPRESSION: Resolution of the previously noted dilated loops of air-filled small bowel. The bowel gas pattern melvin ears nonobstructive on today's exam. No pneumoperitoneum. ACT 112: Negative or not required by law. The above report was generated using voice recognition software. It may contain grammatical, syntax o r spelling errors. Electronically signed by: Jarrod Salas M.D. 01/24/2020 8:46 AM
[2020-01-24] MEDS: FAMOTIDINE 20 MG in SYRINGE 3 ML IV SCH ×2 (08:53→08:56)
--- NOTE | 2020-01-24 09:36 | Hospitalist Progress Note ---
Date of Service January 24, 2020 Assessment & Plan Admission and Anticipated Discharge Date Admission Date: January 23, 2020 Results & Data Results & Data ([facility]) Vital Signs (Past 12 Hours) Vital Signs Temp Pulse Resp BP Pulse Ox 01/24/20 07:40 36.8 C 58 L 18 171/71 H 97 01/24/20 00:45 172/104 H 01/24/20 00:26 36.8 C 66 18 192/95 H 98 PG Care Time/CCT Total # of Minutes Spent Total Time Spent with Patient: Total time spent is greater than 50% in coordination of care (as documented) at patient's floor/unit and/or counseling patient: Coding
--- NOTE | 2020-01-24 09:49 | Surgery Progress Note ---
Date of Service January 24, 2020 Assessment & Plan (1) Small bowel obstruction: Feeling much better today KUB improved No abdominal pain or tenderness and passing flatus Small bowel obstruction resolving Clear liquid diet today No peritonitis No evidence for surgical intervention Admission and Anticipated Discharge Date Admission Date: January 23, 2020 Subjective Feels better today Passing gas Has not had bowel movement yet Denies abdominal pain Denies nausea or vomiting Physical Exam Gastrointestinal (Abdomen): Inspection/Auscultation: normal bowel sounds; abdomen not distended Percussion/Palpation: abdomen soft; abdomen nontender Results & Data ([facility]) Vital Signs (Past 12 Hours) Vital Signs Temp Pulse Resp BP Pulse Ox 01/24/20 07:40 36.8 C 58 L 18 171/71 H 97 01/24/20 00:45 172/104 H 01/24/20 00:26 36.8 C 66 18 192/95 H 98 Laboratory Results 01/24/20 01/24/20 Range/Units 06:23 06:23 WBC 7.57 (4.8-10.8) K/uL RBC 4.50 (4.2-5.4) M/uL Hgb 14.8 (12.0-16.0) g/dL Hct 44.4 (37-47) % MCV 98.7 (80-100) fL MCH 32.9 (25-34) pg MCHC 33.3 (32-36) g/dL RDW Std Deviation 45.2 (36.4-46.3) fL RDW Coeff of Govind 12.6 (11.5-14.5) % Plt Count 217 (130-400) K/uL MPV 10.5 H (7.4-10.4) fL Sodium 142 (136-145) mmol/L Potassium 3.7 (3.5-5.1) mmol/L Chloride 107 (98-107) mmol/L Carbon Dioxide 31 (21-32) mmol/L Anion Gap 3.0 (3-11) BUN 12 (7-18) mg/dl Creatinine 1.11 (0.6-1.2) mg/dl Est Cr Clr Drug Dosing 63.1 ml/min Est GFR ( Amer) 60.4 Est GFR (Non-Af Amer) 52.1 BUN/Creatinine Ratio 11.2 (10-20) Glucose 98 (70-99) mg/dl Calcium 9.2 (8.5-10.1) mg/dl Magnesium 2.2 (1.8-2.4) mg/dl Total Bilirubin 0.7 (0.2-1) mg/dl AST 28 (15-37) U/L ALT 41 (12-78) U/L Alkaline Phosphatase 82 (45-117) U/L Total Protein 6.9 (6.4-8.2) gm/dl Albumin 3.5 (3.4-5.0) gm/dl Globulin 3.4 (2.5-4.0) gm/dl Albumin/Globulin Ratio 1.0 (0.9-2) TSH 3.900 (0.300-4.500) uIu/ml Diagnostic Findings KUB HISTORY: Follow-up study in a patient with small bowel obstruction f/u SBO COMPARISON: KUB 01/23/2020 FINDINGS: Resolution of the previously noted dilated loops of small bowel. Bowel gas pattern appears nonobstructive. There is noted within the ascending colon. Mild fecal retention. Surgical clips of the central abdomen and abdominal right upper quadrant. No renal calculi. No ureteral calculi. No pneumoperitoneum or pneumatosis. No fracture. IMPRESSION: Resolution of the previously noted dilated loops of air-filled small bowel. The bowel gas pattern appears nonobstructive on today's exam. No pneumoperitoneum.
--- NOTE | 2020-01-24 10:47 | Discharge Summary ---
Date of Service January 24, 2020 Admission HPI Per Admitting Provider 64yo C female presenting with 2d of abdominal pain. Pain began in the epigastric region, moderate severity which resolved in a few hours. Pain returned yesterday around 17:30, epigastric with bandlike radiation around her chest and into back and flanks. Also with abdominal bloating and distention. Some nausea with no vomiting. +BM last on 01/22/20 at 19:20 - soft, non-bloody. Patient is not passing flatus at present but is belching. No additional complaints Pre-admission Covid testing as recommended by Infection Control - NEGATIVE ER Course: NICOLLE Grider Admission Exam Per Admitting Provider General: patient resting comfortably, NAD, non-toxic in appearance, AA&O x 4 Skin: warm, dry, intact, no rashes or lesions HEENT: NC/AT, PERRL, EOMI, anicteric sclera, conjunctiva without injection, external ear normal to inspection and nontender, nares patent, moist mucus membranes, dentition intact, no oropharyngeal lesions, neck supple, trachea midline, no LAD, no thyromegaly, no JVD Heart: +S1/S2, regular, no m/r/g Lungs: equal air entry bilaterally, no rales/rhonchi/wheezes Abd: Diminished bowel sounds, soft, mildly tender with deep palpation most in LLQ with some voluntary guarding, no peritoneal signs, no masses/organomegaly/ascites Ext: warm, 2+ pulses in UE/LE bilaterally, no clubbing/cyanosis or edema Neuro: nonfocal, patient AA&O x 4, speech intact, no facial droop, moving all extremities on command with equal strength 5/5 Principal Diagnosis Small Bowel Obstruction Discharge Exam Constitutional no acute distress Eyes PERRL, conjunctivae normal, anicteric sclerae ENMT external ear and nose normal, oropharynx normal Neck normal visual inspection and trachea midline Respiratory normal respiratory effort, lungs clear to auscultation Cardiovascular Rate/Rhythm: regular rate and regular rhythm Gastrointestinal (Abdomen) Inspection/Auscultation: normal bowel sounds; abdomen not distended Percussion/Palpation: abdomen soft; abdomen nontender Musculoskeletal Head/Neck/Chest: normocephalic and head atraumatic moves all extremities Skin no rashes, warm and dry Neurologic patellar DTR's 2+ bilat, sensation intact Psychiatric A+Ox3, euthymic affect Lymphatic no cervical lymphadenopathy Discharge Data Allergies Allergy/AdvReac Type Severity Reaction Status Date / Time ibuprofen Allergy Severe ELEVATED BP Verified 01/22/20 23:29 Iodinated Contrast Media Allergy Severe SHORTNESS Verified 01/22/20 23:29 OF BREATH procaine Allergy Severe DIFFICULTY Verified 01/22/20 23:29 BREATHING azithromycin Allergy Intermediate Hives Verified 01/22/20 23:29 Bactrim Allergy Intermediate HIVES; SOB Unverified 10/02/17 03:14 bupropion Allergy Intermediate SEVERE Verified 01/22/20 23:29 HEADACHE, WEAKNESS cefaclor Allergy Intermediate HIVES Verified 01/22/20 23:29 cephalexin Allergy Intermediate HIVES Verified 01/22/20 23:29 chlorpheniramine Allergy Intermediate SOB,PANIC Verified 01/22/20 23:29 ATTACK chocolate flavor Allergy Intermediate HIVES Verified 01/22/20 23:29 ciprofloxacin Allergy Intermediate HIVES Verified 01/22/20 23:29 codeine Allergy Intermediate SOB,PANIC Verified 01/22/20 23:29 ATTACK diphenhydramine Allergy Intermediate HIVES Verified 01/22/20 23:29 epinephrine Allergy Intermediate UNCONTROLLED Verified 01/22/20 23:29 SHAKING, ELEVATED BP fluoxetine Allergy Intermediate SEVERE Verified 01/22/20 23:29 HEADACHE lidocaine Allergy Intermediate UNCONTROLLED Verified 01/22/20 23:29 SHAKING, ELEVATED BP morphine Allergy Intermediate SEVERE Verified 01/22/20 23:29 HEADACHE nitrofurantoin Allergy Intermediate HIVES Verified 01/22/20 23:29 paroxetine Allergy Intermediate SEVERE Verified 01/22/20 23:29 HEADACHE Penicillins Allergy Intermediate HIVES Verified 01/22/20 23:29 strawberry Allergy Intermediate HIVES Verified 01/22/20 23:29 sulfamethoxazole Allergy Intermediate HIVES; SOB Verified 01/22/20 23:29 trimethoprim Allergy Intermediate HIVES; SOB Verified 01/22/20 23:29 latex Allergy Mild ITCHY RASH Verified 01/22/20 23:29 minocycline Allergy Mild HIVES Verified 01/22/20 23:29 Cipro Allergy Unknown HIVES Unverified 10/02/17 03:14 phenylpropanolamine Allergy Unknown SOB,PANIC Verified 01/22/20 23:29 ATTACK caffeine AdvReac Intermediate INCREASE BP Verified 01/22/20 23:29 clindamycin AdvReac Intermediate DIARRHEA Verified 01/22/20 23:29 tetracycline AdvReac Intermediate YEAST Verified 01/22/20 23:29 INFECTION CONTRAST DYE Allergy Intermediate SOB, HOT Uncoded 01/22/20 23:29 Consultations 01/22/20 23:20 ED Decision to Admit Stat 01/23/20 01:47 Consult General Surgery Routine Ordered Studies 01/22/20 21:58 CT abd pelvis wo con Urgent 01/22 K[facility] 01/23 [facility] Hospital Course (1) Abdominal pain: Presented with abdominal pain and found to have SBO on imaging. Consulted general surgery -- no surgery indicated Conservative treatment with IVF, antiemetics KUB on 01/23 with resolution and patient passing gas and +BM Discussed follow up colonoscopy at outpatient as she has never had one. Low fiber diet x 2 weeks then advance as tolerated (2) Hypertension: Patient with elevated BP in the ER - she states that it is always high when checked with an automated cuff. Denies VIZCAINO/visual change/CP/SOB Not on any medications BP elevated 166/98 although she states BP at home cuff 120/70s and office tends to be slightly higher Should take BP cuff in to compare at office on next visit. No visual symptoms/ischemia noted. If continues to be elevated at next office visit we discussed she should be on some kind of antihypertensive agent (3) Hypothyroidism, postablative: Chronic Continued Synthroid Discharged home Total Time Total Time Spent Total Time Spent (In Minutes): 60 Discharge Plan Discharge Items Patient Disposition: Home - Self-Care Reason For Visit: ABDOMINAL PAIN, ?ILEUS VS SBO Discharge Diagnosis: Small Bowel Obstruction Goals: You have been hospitalized for an acute medical problem. During your stay at [facility], we have made an effort to correct the problem that brought you to the hospital while keeping you as comfortable as possible. Medications were used to bring your condition under control and your discharge instructions will include directions for any medications you should take after leaving the hospital. Please make sure you see your Primary Care Provider as part of your follow up plan. Activity: Resume your previous activity Non-emergency contact: Primary Care Provider Call non-emergency contact if: you have any medication questions, your symptoms worsen and your pain is not controlled Follow-up/Referrals: Dae Tierney III, MD [Primary Care Provider] - 01/26/20 10:30 am Diet: Low Fiber Addtl Attending Provider Instructions: You have been hospitalized for abdominal pain and found to have a small bowel obstruction on imaging. This is likely secondary to adhesions from previous surgeries as discussed. You were evaluated by general surgery who felt conservative treatment was warranted rather than surgical intervention. Repeat imaging has shown resolution of obstruction and you should continue low fiber diet for the next two weeks and advance diet as tolerated. You have been sent a short prescription of nausea medication to use as needed. This is the same medication you had received while in the hospital. As discussed, it is recommended that you follow up with a colonoscopy in the next 6-8 weeks as an outpatient given the obstruction and that you have never had one in the past. Please follow up with your PCP in the next 1-2 weeks to monitor your progress and get set up with colonoscopy. Please return to the emergency department with any worsening abdominal pain, nausea, vomiting or for any other symptoms that are concerning for you. Pending Studies at Discharge: No Stand-Alone Forms: My [facility] Medications and DC Order Prescriptions: New ondansetron 4 mg tablet,disintegrating 4 mg PO Q8H PRN (Reason: nausea and vomiting) 5 Days RF: 0 Continued erythromycin ethylsuccinate 200 mg/5 mL suspension for reconstitution 200 mg PO QID Qty: 100 RF: 0 furosemide 20 mg tablet 10 mg PO DAILY PRN (Reason: edema) Qty: 30 RF: 5 Tirosint 100 mcg capsule 100 mcg PO DAILY RF: 0 Discharge Orders: Discharge Order (Routine); Ordered 01/24/20 Ordered By: Harika Isaacs/Other Patient Handouts: Small Bowel Obstruction, Low-Fiber Diet Admission Data Admit Date/Time: 01/23/20 01:04 Attending Provider: Ghanshyam French Admit Provider: Paulina Warren Primary Care Provider: Dae Tierney III Other Providers: Paulina Warren ; Scooby Camacho Other Interventions: Discharge Summary Assessment (RN) Last Done: 01/24/20 11:17 Coding Level of Care Code 56818 OBS Care - Discharge Diagnoses Abdominal pain R10.12 Abdominal location: left upper quadrant Hypertension I10 Hypertension type: essential hypertension Hypothyroidism, postablative E89.0
[2020-01-24 10:54] VITALS: BP 166/98
== END 2020-01-24 15:00 | disposition home or self-care (01) ==
LOC: ED 20:42 → 3E 20:42 → SUATTDRO 01-23 01:04 → 3E 01-23 01:37